=== PATIENT | male | born 1950 | race Caucasian/White ===

== ENCOUNTER 2023-09-11 09:44 | Outpatient (OUT) | payer MEDICARE, SELFPAY ==
--- NOTE | 2023-09-11 10:00 | CA_ITS ---
Patient Name: BEN VOSS MR#: [id number] : 1950 Exam Date: 09/11/2023 Ordering Doctor: MARIA L NINA M.D. ECHOCARDIOGRAM REPORT PROCEDURE: CA ECHO DOPPLER COMPLETE INDICATIONS: Atrial fibrillation, edema, hypertension COMPARISON: None. DESCRIPTION: COMPLETE ECHOCARDIOGRAM Real-time transthoracic echocardiography with 2D, M-mode, spectral and color flow Doppler performed. QUALITY: Technical quality was good. LEFT VENTRICLE: Normal chamber size. Normal left ventricular wall thickness. Normal systolic function. LV EF: Normal left ventricular ejection fraction, (65%). DIASTOLIC: Not adequately assessed due to heart rhythm. ATRIAL SEPTUM: LEFT ATRIUM: Moderate dilatation. RIGHT ATRIUM: Mild dilatation. RIGHT VENTRICLE: Mild dilatation. Normal right ventricular systolic function. TRICUSPID VALVE: Normal mobility and thickness. No stenosis with no regurgitation. Unable to assess right-sided pressures due to lack of measurable tricuspid regurgitation. MITRAL VALVE: Normal mobility and thickness. No evidence of mitral valve stenosis. There is no mitral annular calcification. Trivial mitral regurgitation. AORTIC VALVE: Normal trileaflet appearance. Mildly calcified aortic valve. Normal leaflet mobility. No evidence of aortic valve stenosis. No aortic regurgitation. AORTIC ROOT: Normal diameter and appearance. Ascending aorta is normal in size. PULMONIC VALVE: Normal thickness and mobility. No stenosis. Mild regurgitation. PERICARDIUM: No evidence of pericardial effusion. IVC: IVC is normal in size, does not collapse. PLEURA: CONCLUSION: 1. Normal left ventricular size and systolic function. LVEF is 65%. 2. Mildly dilated right ventricle with normal systolic function. 3. Mild to moderate biatrial dilatation. 4. No significant valvular dysfunction. 5. Unable to assess right-sided pressures due to lack of measurable tricuspid regurgitation. 6. The patient appears to be in atrial fibrillation during the exam. Adult Echocardiography Procedure Report Left Ventricle LVEDD (3.7 - 5.6 cm): 5.56 cm LVESD (2.2 - 4.0 cm): 4.09 cm LVIVS thickness (0.6 - 1.2 cm): 1.11 cm LVPW thickness (0.5 - 1.0 cm): 1.03 cm e': 0.11 m/s LVOT Max Gradient: 2.65 mm[Hg], 2.82 mm[Hg] LVOT Area (cm2): 0.83 m/s Peak Velocity (LVOT): 0.81 m/s, 0.84 m/s LVOT Diameter 2.39 cm Left Atrium LA Volume Index (2D A2C): 40.65 ml/m2 Left Atrium Systolic Dimension: 5.03 cm Mitral Valve Mitral Valve E-Wave Peak Velocity: 1.23 m/s Right Ventricle Aorta AO Root Diam: 3.73 cm Ascending Ao Diam: 3.60 cm Aortic Valve AoV Area (Peak Medhat): 3.22 cm2, 3.17 cm2 Peak Velocity(Antegrade Flow): 1.15 m/s Peak Gradient(Antegrade Flow): 5.32 mm[Hg] Tricuspid Valve Pulmonic Valve Peak Velocity: 1.15 m/s Peak Gradient: 4.33 mm[Hg], 6.44 mm[Hg] Right Atrium Right Atrium Systolic Pressure: 134.78 ml, 134.78 ml Dictated by: Juan Luis Aggarwal M.D. on 09/12/2023 at 15:57 Approved by: Juan Luis Aggarwal M.D. on 09/12/2023 at 16:00
== END 2023-09-11 09:45 | disposition home or self-care (01) ==
LOC: CARD 09:47
PROVIDERS: PCP Internal Medicine; Visit Provider Internal Medicine Cardiovascular Disease
DX: I11.9 Hypertensive heart disease without heart failure (principal); I48.91 Unspecified atrial fibrillation; R60.0 Localized edema
CPT/HCPCS: 93306

== ENCOUNTER 2025-01-03 14:06 | Emergency (ER) | payer MEDICARE, SELFPAY ==
--- NOTE | 2025-01-03 14:06 | CT_ITS ---
The [address] [address] Patient Name: BEN VOSS MRN: [id number] date: 1950 Sex: M Assigned Patient Location: ED.MAIN Current Patient Location: ED.MAIN Accession/Order Number: [id number] Exam Date: 01/03/2025 14:17 Report Date: 01/03/2025 14:28 At the request of: CASSIE SMITH MD Procedure: CT stroke head/brain wo con Unenhanced head CTstroke alert TECHNIQUE: Contiguous axial imaging of the head. The CT exam was performed using one or more the following dose reduction techniques: Automated exposure control, adjustment of the MA and/or Kv according to patient size, or use of the iterative reconstruction technique. COMPARISON: None HISTORY: Fell. Head injury. Patient on blood thinners VENTRICLES: Within normal limits ATROPHY: Diffuse atrophy BRAIN PARENCHYMA: Decreased density of the white matter is most consistent with chronic small vessel disease. HEMORRHAGE: None HERNIATION: No mass effect or herniation INFARCTION: No recent vascular distribution infarction is seen. EXTRA-AXIAL FLUID COLLECTIONS None MIDBRAIN: Unremarkable NIKKI: Unremarkable MEDULLA: Unremarkable SINUSES: Unremarkable ORBITS: Grossly unremarkable MASTOIDS: Unremarkable BONY STRUCTURES Intact ADDITIONAL FINDINGS: Calcified plaquing of the carotid siphons. CT/CT stroke head/brain wo con IMPRESSION: No acute findings. The preliminary given 2:24 PM 01/03/2025 Impression dictated by: Cassie Valdez M.D. 01/03/2025 2:28 PM Dictation Location[facility] Electron[facility] authenticated by: [id number] Y Date: 01/03/2025 14:28
--- NOTE | 2025-01-03 14:08 | CT_ITS ---
[address] [address] Patient Name: BEN VOSS MRN: [id number] date: 1950 Sex: M Assigned Patient Location: ED.MAIN Current Patient Location: ED.MAIN Accession/Order Number: [id number] Exam Date: 01/03/2025 14:17 Report Date: 01/03/2025 14:31 At the request of: CASSIE SMITH MD Procedure: CT cervical spine wo con CT Cervical Spine withoutcontrast TECHNIQUE: Axial imaging with 2-D and 3-D reconstruction. The CT exam was performed using one or more the following dose reduction techniques: Automated exposure control, adjustment of the MA and/or Kv according to patient size, or use of the iterative reconstruction technique. COMPARISON: None HISTORY: Head injury. Patient on blood thinners. POST SURGERY CHANGES: C5-7 fusion without hardware complication. BONY ALIGNMENT: Adequate BONY SPINAL CANAL: Patent central bony canal FRACTURE: None BONY LESIONS: None SOFT TISSUES: Unremarkable DEGENERATIVE CHANGES: C3-4 and C4-5 spondylosis. Multilevel facet degeneration. LUNG APICES: Unremarkable ADDITIONAL FINDINGS: CT/CT cervical spine wo con IMPRESSION: No acute process Impression dictated by: Cassie Valdez M.D. 01/03/2025 2:31 PM Dictation Location: Narrative Electronically authenticated by: [id number] Y Date: 01/03/2025 14:31
[2025-01-03 14:20] VITALS: BP 153/85; PULSE 70; TEMP 36.8; O2SAT 95; BMI 54.8
--- OUTSIDE RECORDS SUMMARY | 2025-01-03 15:17 | XMS_ITS | CCD ---
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 Role Phone ANSON, DR FRANCK Lord Attending Unavailable ANSON, DR FRANCK Lord Consulting Unavailable ANSON, DR FRANCK Lord Admitting DR BOB Armendariz Primary Care Unavailable Bob Ferrell MD Unavailable Bob Ferrell MD Primary Care Provider [phone] BOB FERRELL Attending BOB Armendariz Attending BOB Armendariz Attending BOB Armendariz Attending BOB Armendariz Attending Unavailable BOB FERRELL Attending Unavailable BOB FERRELL Attending Unavailable JOLIE KENT Attending Unavailable Medications Current Medications MedicationDrug Class(es)DatesSig (Normalized)Sig (Original)acetaminophen 325 mg / HYDROcodone bitartrate 5 mg oral tablet (20 sources)Opioid AgonistStart: 74-70-8999yshx 2 tablets by mouth every six hours for painHYDROcodone-acetaminophen ([place]) 5-325 MG tablet Indications: Lumbosacral neuritis , Degeneration of cervical intervertebral disc Take 2 tablets by mouth every 6 (six) hours if needed for severe pain 120 tablet 10/30/2024 ActiveStart: 39-12-6666oksl 2 tablets by mouth every six hours for painHYDROcodone-acetaminophen ([place]) 5-325 MG tablet Indications: Lumbosacral neuritis , Degeneration of cervical intervertebral disc Take 2 tablets by mouth every 6 (six) hours if needed for severe pain 120 tablet 10/30/2024 ActiveStart: 09-04-2023 End: 68-29-4803cuzh 2 tablets by mouth every six hours for painHYDROcodone- acetaminophen ([place]) 5-325 MG tablet Indications: Lumbosacral neuritis , Degeneration of cervical intervertebral disc Take 2 tablets by mouth every 6 (six) hours if needed for severe pain 120 tablet 06/27/2024 10/30/2024 Discontinued (Reorder)atorvastatin 20 mg oral tablet (16 sources)HMG-CoA Reductase InhibitorStart: 14-38-7016yesu 1 tablet by mouth once dailyatorvastatin (Lipitor) 20 MG tablet Indications: Mixed hyperlipidemia TAKE ONE TABLET BY MOUTH ONCEDAILY 100 tablet 3 06/06/2024 ActiveStart: 60-67-6876fltpxhulkpzf (Lipitor) 20 MG tablet Indications: Mixed hyperlipidemia (CMS/HCC) TAKE 1 TABLET ONCE DAILY 100 tablet 3 07/30/2023 Activecarvedilol 12.5 mg oral tablet (16 sources)alpha-Adrenergic Melanie, beta-Adrenergic BlockerStart: 06-11-2023 End: 05-64-9527vrhv 1 tablet by mouth in the morningcarvedilol (Coreg) 12.5 MG tablet Indications: Longstanding persistent atrial fibrillation (HCC) , Benign essential hypertension TAKE 1 TABLET BY MOUTH IN THE MORNING AND 1 TABLET IN THE EVENING WITHMEALS. 200 tablet 3 03/18/2024 Activecyclobenzaprine hydrochloride 10 mg oral tablet (16 sources)Muscle RelaxantStart: 08-72-8109tagh 1 tablet by mouth three times daily as needed for muscle spasms, then take 1 tablet by mouth three times daily as needed for muscle spasmscyclobenzaprine (Flexeril) 10 MG tablet Indications: Degeneration of cervical intervertebral disc Take 1 tablet (10 mg) by mouth 3 (three) times a day as needed for muscle spasms Take one capsule up to three times daily for 90 days 300 tablet 3 03/28/2024 ActiveStart: 12-03-2035ckvk 1 tablet by mouth three times daily as needed for muscle spasms, then take 1 tablet by mouth three times daily as needed for muscle spasmscyclobenzaprine (Flexeril) 10 MG tablet Indications: Degeneration of cervical intervertebral disc Take 1 tablet (10 mg) by mouth 3 (three) times a day as needed for muscle spasms Take one capsule up to three times daily for 90 days 300 tablet 3 10/11/2023 Activedigoxin 0.125 mg oral tablet (16 sources)Cardiac GlycosideStart: 67-27-9233ztao 1 tablet by mouth once daily digoxin (Lanoxin) 125 MCG tablet Indications: Atrial fibrillation, unspecified type (HCC) , Benign essential hypertension TAKE ONE TABLET BY MOUTH EVERY DAY 100 tablet 3 09/15/2024 ActiveStart: 43-18-2794onjs 1 tablet by mouth once daily digoxin (Lanoxin) 125 MCG tablet Indications: Atrial fibrillation, unspecified type (HCC) , Benign essential hypertension Take 1 tablet (125 mcg) by mouth Daily 90 tablet 3 09/03/2023 Uxpymg46 hr dilTIAZem hydrochloride 240 mg extended release oral capsule (18 sources)Calcium Channel BlockerStart: 12-29-2022 End: 25-70-2120fppm 1 tablet by mouth once dailydilTIAZem CD (Cardizem CD) 240 MG 24 hr capsule Indications: Longstanding persistent atrial fibrillation (HCC) Take 1 tablet by mouth daily 90 capsule 3 11/14/2023 Activedocosahexaenoic acid 120 mg / eicosapentaenoic acid 180 mg oral capsule (17 sources)omega-3 (fish oil) 1000 MG capsule 1 capsule 1 (one) time each day at the same time. Activefurosemide 20 mg oral tablet (18 sources)Loop DiureticStart: 05-21-2023 End: 52-78-3280hway 1 tablet by mouth once dailyfurosemide (Lasix) 20 MG tablet Indications: Generalized edema TAKE ONE TABLET BY MOUTH EVERY DAY 90 tablet 3 08/26/2024 Activelisinopril 20 mg oral tablet (5 sources)Angiotensin Converting Enzyme InhibitorStart: 08-19-2024 End: 73-40-7366iinz 1 tablet by mouth in the morninglisinopril 20 MG tablet Take 20 mg by mouth in the morning. 08/19/2024 10/30/2024 Discontinued (Side effects) Multiple Vitamins-Minerals (Multi For Him 50+) tablet (17 sources)Multiple Vitamins-Minerals (Multi For Him 50+) tablet 1 (one) time each day at the same time. Activeomeprazole 40 mg delayed release oral capsule (18 sources)Proton Pump InhibitorStart: 03-30-2023 End: 74-48-5017pdct 1 capsule by mouth once dailyomeprazole (PriLOSEC) [address] capsule Indications: GERD without esophagitis TAKE ONE CAPSULE BY MOUTH EVERY DAY AT THE SAME TIME 100 capsule 3 08/25/2024 Activeramipril 10 mg oral capsule (15 sources)Angiotensin Converting Enzyme InhibitorStart: 07-30-2023 End: 10-97-7808pqzg 1 capsule by mouth once dailyramipril (Altace) 10 MG capsule Indications: Benign essential hypertension Take 1 capsule (10 mg) by mouth Daily 90 capsule 3 11/14/2023 08/25/2024 DiscontinuedTurmeric extract (17 sources)Turmeric 500 MG tablet 1 (one) time each day at the same time. Activewarfarin sodium 5 mg oral tablet (16 sources)Vitamin K AntagonistStart: 01-01-2024 End: 03-61-1202sqkg 2 tablets by mouth three times weekly, then take 1 tablet by mouth four times weeklywarfarin (Coumadin) 5 MG tablet Indications: Longstanding persistent atrial fibrillation (HCC) TAKE2 TABLETS BY MOUTH 3 TIMES A WEEK AND 1 TABLET 4 TIMES A WEEK 143 tablet 3 10/27/2024 ActiveStart: 86-06-4888qkxe 2 tablets by mouth three times weekly, then take 1 tablet by mouth four times weeklywarfarin (Coumadin) 5 MG tablet Indications: Longstanding persistent atrial fibrillation (CMS/HCC) Take 2 tablets (10 mg) by mouth 3 (three) times a week AND 1 tablet (5 mg) 4 (four) times a week. 143 tablet 3 06/25/2023 Active Problems Active Problems Problem ClassificationProblemDateDocumented DateEpisodic/ChronicCardiac dysrhythmias (20 sources)Atrial fibrillation; Translations: [Unspecified atrial fibrillation] Onset: 029761-95-7822TuxdrixXtpwzszp mellitus with complications (2 sources)Type 2 diabetes mellitus; Translations: [Type 2 diabetes mellitus with unspecified complications]61-83-4014MtgtbhmTgahvjfw mellitus without complication (20 sources)Insulin treated type 2 diabetes mellitus; Translations: [Type 2 diabetes mellitus without complications]Onset: hronic Disorders of lipid metabolism (20 sources)Mixed hyperlipidemia; Translations: [Mixed hyperlipidemia]Onset: 047721-29-8697OiluqjdMvlyhpsqdk disorders (19 sources)Gastroesophageal reflux disease without esophagitis; Translations: [Gastro-esophageal reflux disease without esophagitis]Onset: 07-12-2022 49-66-3081AeqnkknVrnppuziy hypertension (20 sources)Benign essential hypertension; Translations: [Essential (primary) hypertension]Onset: 119030-55-1911EmumqkeThhoydbaalcj with complications and secondary hypertension (2 sources)Hypertensive heart disease without heart failure; Translations: [Hypertensive heart disease withoutheart failure]Onset: 09-40-5884Lfcbmdz Immunizations and screening for infectious disease (2 sources)Needs influenza immunization; Translations: [Encounter for immunization]94-51-5551EymnnshiRrmrcafvakprmg (17 sources)Osteoarthritis; Translations: [Primary generalized (osteo)arthritis] Onset: 172445-63-9693SstcjacGmpkb nutritional; endocrine; and metabolic disorders (17 sources)Morbid obesity; Translations: [Morbid (severe) obesity due to excess calories]Onset: 455411-22-1098HxrughsCogtiajv codes; unclassified (17 sources)Obstructive sleep apnea syndrome; Translations: [Obstructive sleep apnea (adult) (pediatric)]Onset: 628487-98-8064RpekcuoExfccfnx codes; unclassified (2 sources)Edema, generalized; Translations: [Generalized edema]11-14-2023 EpisodicSpondylosis; intervertebral disc disorders; other back problems (20 sources)Degeneration of cervical intervertebral disc; Translations: [Other cervical disc degeneration, unspecified cervical region]Onset: 07-12-2022 18-79-9650Mstipbj Past or Other Problems Problem ClassificationProblemDateDocumented DateEpisodic/ChronicOther aftercare (15 sources)Long-term current use of anticoagulant; Translations: [Encounter for therapeutic drug level monitoring]Onset: 463202-93-3339TkortobzEehcepco codes; unclassified (17 sources)Edema; Translations: [Edema, unspecified]Onset: EpisodicSpondylosis; intervertebral disc disorders; other back problems (20 sources)Lumbosacral radiculitis; Translations: [Radiculopathy, lumbosacral region]Onset: 977981-03-3624Ovopelue Results Test NameValueInterpretationReference IunjdWbcboetc00bf 42-30-881714Bt returned call he wants to stay on ramipril, he will take bps for 2 weeks and call us w readingsNormalUniRegency Hospital [facility]36LM for patient to return my call.[facility]36Patient called to make you aware that since changing from ramipril to lisinopril on 08/19/2024, he's been very dizzy and has fallen a few times. A few days ago he switched back to ramipril and his BP has been 130's/70's. He states the dizziness did subside with the switch. Is there anything else you'd like him to do/try? Please advise. Thanks.NormalGal[facility] Hospital [facility] - Cytologyon 07-38-3401Lzplloajbkp observation Cyto stain Nom (Cvx) 2.7NOMS HealthcareNo Panel Informationon [id number] HealthcareTelephoneon [id number] Ben Knight 1950 M Date Provider Department Center 10/30/2024 T[facility]TEJAS [facility] Family History Problem Relation Age of Onset Cancer Mother Heart attack Father Coronary artery disease Other Cancer Other Family Status - Relation Status Age at Mother Father OtherNormalUniversWooster Community HospitalLaboratory - Cytologyon 08-25-2024 Microscopic observation Cyto stain Nom (Cvx)2.1[facility] HealthcareLaboratory - Hematology and Cell countson 50-69-1646EdY7f (Bld) [Mass fraction]7.9 %[facility]OMS HealthcareNo Panel Informationon [id number] HealthcareNOTN Qktbxrzogh08zm *We will change ramipril to lisinopril. *Have follow-up labs done 2-3 weeks after starting lisinopril so we can check your kidney function as this medication is filtered by the kidneys. *Let us know if your BP continues to run >130.NormalGalion HospitalALBUMIN, RANDOM URINE W/CREATININEon 97-69-2769OGSBNOJ, URINE71.1 mg/dL NormalSee Note:[facility] DiagnosticsComment on above:Result Comment: Reference Range: Reference Range Not established Results verified by repeat analysis on dilution.Performed By: #### 0011, 5530, 24884, 8890 #### [facility] [place] [address] Senior Operations Manager: Renzo Milton MDALBUMIN/CREATININE RATIO, RANDOM ZRGBG818 mg/g creatHigh<30Quest DiagnosticsComment on above:Result Comment: The ADA defines abnormalities in albumin excretion as follows: Albuminuria Category Result (mg/g creatinine) Normal to Mildly increased <30 Moderately increased 30-299 Severely increased > OR = 300 The ADA recommends that at least two of three specimens collected within a 3-6 month period be abnormal before considering a patient to be within a diagnostic category.Performed By: #### 6517, 6399, 64515, 7600 #### [facility] [place] [address] Senior Operations Manager: Renzo Milton MDCreatinine (U) [Mass/Vol]148 mg/nFKswetb08-727 [facility] DiagnosticsComment on above:Performed By: #### 6517, 6399, 08921, 7600 #### [facility] [place] [address] Senior Operations Manager: Renzo Milton MDCBC (INCLUDES DIFF/PLT)on 29-49-4013Bzszmnrrh (Bld) [#/Vol]0.106 10*3/uLNormal0-200Quest DiagnosticsComment on above:Performed By: #### 6517, 63, 88765, 7600 #### [facility] [place] [address] Senior Operations Manager: Renzo Milton MDBasophils/100 WBC (Bld)1.1 %NormalQuest DiagnosticsComment on above:Performed By: #### 6517, 6399, 97760, 7600 #### [facility] [place] [address] Senior Operations Manager: Renzo Milton MDEosinophils (Bld) [#/Vol]0.365 10*3/uLNormal 15-500Quest DiagnosticsComment on above:Performed By: #### 6517, 6399, 64603, 7600 #### [facility] of [address], [address] [place] [address] Senior Operations Manager: Renzo Milton MDEosinophils/100 WBC (Bld)3.8 %NormalQuest DiagnosticsComment on above:Performed By: #### 6517, 6399, 09366, 7600 #### [facility] of [place] [address] Senior Operations Manager: Renzo Milton MDErythrocyte distribution width (RBC) [Ratio] 14.8 %Fvoalz69.0-15.0Quest DiagnosticsComment on above:Performed By: #### 6517, 6399, 07115, 7600 #### [facility] of [place] [address] Senior Operations Manager: Renzo Milton MDHematocrit (Bld) [Volume fraction]49.0 %Normal 38.5-50.0Quest DiagnosticsComment on above:Performed By: #### 6517, 6399, 80109, 7600 #### [facility] of [place] [address] Senior Operations Manager: Renzo Milton MDHemoglobin (Bld) [Mass/Vol]14.8 g/dLNormal 13.2-17.1Quest DiagnosticsComment on above:Performed By: #### 6517, 6399, 54482, 7600 #### [facility] of [address], [address] [place] [address] Senior Operations Manager: Renzo Milton MDLymphocytes (Bld) [#/Vol]1.478 10*3/uLNormal 850-3900Quest DiagnosticsComment on above:Performed By: #### 6517, 6399, 72076, 7600 #### [facility] of [address], [address] [place] [address] Senior Operations Manager: Renzo Milton MDLymphocytes/100 WBC (Bld)15.4 %NormalQuest DiagnosticsComment on above:Performed By: #### 6517, 6399, 99725, 7600 #### [facility] of [address], [address] [place] [address] Senior Operations Manager: Renzo TANCH (RBC) [Entitic mass]29.9 nnNbitbf92.0-33.0 [facility] DiagnosticsComment on above:Performed By: #### 6517, 63, 44291, 7600 #### [facility] of [address], [address] [place] [address] Senior Operations Manager: Renzo TANCHC (RBC) [Mass/Vol]30.2 g/dLLow32.0-36.0 [facility] DiagnosticsComment on above:Result Comment: For adults, a slight decrease in the calculated MCHC value (in the range of 30 to 32 g/dL) is most likely not clinically significant; however, it should be interpreted with caution in correlation with other red cell parameters and the patient's clinical condition.Performed By: #### 6517, 63, 06735, 7600 #### [facility] of [place] [address] Senior Operations Manager: Renzo Milton MDMCV (RBC) [Entitic vol]99.0 nKYjnxgv04.0-100.0 [facility] DiagnosticsComment on above:Performed By: #### 6517, 63, 24240, 7600 #### [facility] of [address], [address] [place] [address] Senior Operations Manager: Renzo Milton MDMonocytes (Bld) [#/Vol]0.682 10*3/uLNormal 200-950Quest DiagnosticsComment on above:Performed By: #### 6517, 63, 93071, 7600 #### [facility] of [place] [address] Senior Operations Manager: Renzo Milton MDMonocytes/100 WBC (Bld)7.1 %NormalQuest DiagnosticsComment on above:Performed By: #### 6517, 63, 96208, 7600 #### [facility] of [place] [address], [address] [place] [address] Senior Operations Manager: Renzo Scanlon (Bld) [#/Vol]6.97 10*3/uLNormal 1500-7800Quest DiagnosticsComment on above:Performed By: #### 6517, 6399, 17147, 7600 #### [facility] of [place] [address] [address] , [address] [place] [address] Senior Operations Manager: Renzo Scanlon/100 WBC (Bld)72.6 %NormalQuest DiagnosticsComment on above:Performed By: #### 6517, 6399, 04990, 7600 #### [facility] of [address] , [address] [place] [address] Senior Operations Manager: Renzo CHANlatelet mean volume (Bld) [Entitic vol]9.8 fL Normal7.5-12.5Quest DiagnosticsComment on above:Performed By: #### 6517, 6399, 06554, 7600 #### [facility] of [place] [address] [address] , [address] [place] [address] Senior Operations Manager: Renzo Milton MDPlatelets (Bld) [#/Vol]251 10*3/uLNormal 140-400Quest DiagnosticsComment on above:Performed By: #### 6517, 6399, 25982, 7600 #### [facility] of [place] [address] [address] , [address] [place] [address] Senior Operations Manager: Renzo Milton MDRBC (Bld) [#/Vol]4.95 10*6/uLNormal4.20-5.80 [facility] DiagnosticsComment on above:Performed By: #### 6517, 6399, 88812, 7600 #### [facility] of [place] [address], [address] [place] [address] Senior Operations Manager: Renzo Milton MDWBC (Bld) [#/Vol]9.6 10*3/uLNormal3.8-10.8 [facility] DiagnosticsComment on above:Performed By: #### 6517, 6399, 89821, 7600 #### [facility] of [address], [address] [place] [address] Senior Operations Manager: Renzo Milton MDCOMPREHENSIVE METABOLIC PANELon 08-19-2024 Albumin [Mass/Vol]4.0 g/dLNormal3.6-5.1Quest DiagnosticsComment on above: Performed By: #### 6517, 6399, 64332, 7600 #### [facility] of [address], [address] [place] [address] Senior Operations Manager: Renzo Milton MDAlbumin/Globulin [Mass ratio]1.5 {ratio}Normal 1.0-2.5Quest DiagnosticsComment on above:Performed By: #### 6517, 6399, 48340, 7600 #### [facility] of [address], [address] [place] [address] Senior Operations Manager: Renzo Milton MDALP [Catalytic activity/Vol]84 U/BWpiwgd26-664 [facility] DiagnosticsComment on above:Performed By: #### 6517, 6399, 94131, 7600 #### [facility] of [place] [address] Senior Operations Manager: Renzo Milton MDALT [Catalytic activity/Vol]7 U/LLow9-46Quest DiagnosticsComment on above:Performed By: #### 6517, 6399, 80284, 7600 #### [facility] of [address], [address] [place] [address] Senior Operations Manager: Renzo Milton MDAST [Catalytic activity/Vol]13 U/TTaayma16-55 [facility] DiagnosticsComment on above:Performed By: #### 6517, 6399, 56690, 7600 #### [facility] of [place] [address] Senior Operations Manager: Renzo Milton MDBilirubin [Mass/Vol]0.7 mg/dLNormal0.2-1.2 [facility] DiagnosticsComment on above:Performed By: #### 6517, 6399, 91405, 7600 #### [facility] of [place] [address] Senior Operations Manager: Renzo Milton MDCalcium [Mass/Vol]9.1 mg/dLNormal8.6-10.3Quest DiagnosticsComment on above:Performed By: #### 6517, 6399, 70965, 7600 #### [facility] of [place] [address] Senior Operations Manager: Renzo Milton MDChloride [Moles/Vol]100 mmol/WSdpwhe56-873 [facility] DiagnosticsComment on above:Performed By: #### 6517, 6399, 39257, 7600 #### [facility] of [place] [address] Senior Operations Manager: Renzo Milton MDCO2 [Moles/Vol]27 mmol/SBunhoh36-08Lcbsr DiagnosticsComment on above:Performed By: #### 6517, 6399, 05978, 7600 #### [facility] of [place] [address] Senior Operations Manager: Renzo Milton MDCreatinine [Mass/Vol]0.68 mg/dLLow0.70-1.28 [facility] DiagnosticsComment on above:Performed By: #### 6517, 6399, 61214, 7600 #### [facility] of [place] [address] Senior Operations Manager: Renzo Milton MDGFR/1.73 sq M.predicted among non-blacks MDRD (S/P/Bld) [Vol rate/Area]99 mL/min/{1.73_m2}Normal> OR = 60[facility] Comment on above:Performed By: #### 6517, 6399, 75821, 7600 #### [facility] of [place] [address] Senior Operations Manager: Renzo Milton MDGlobulin (S) [Mass/Vol]2.7 g/dLNormal1.9-3.7 [facility] DiagnosticsComment on above:Performed By: #### 6517, 6399, 33992, 7600 #### [facility] [place] [address] Senior Operations Manager: Renzo Milton MDGlucose [Mass/Vol]168 mg/iXQsdl62-76Axxtn DiagnosticsComment on above:Result Comment: Fasting reference interval For someone without known diabetes, a glucose value >125 mg/dL indicates that they may have diabetes and this should be confirmed with a follow-up test.Performed By: #### 6517, 6399, 03143, 7600 #### [facility] [place] [address] Senior Operations Manager: Renzo Milton MDPotassium [Moles/Vol]4.2 mmol/LNormal3.5-5.3 [facility] DiagnosticsComment on above:Performed By: #### 6517, 6399, 56333, 7600 #### [facility] [place] [address] Senior Operations Manager: Renzo Milton MDProtein [Mass/Vol]6.7 g/dLNormal6.1-8.1Quest DiagnosticsComment on above:Performed By: #### 6517, 6399, 11121, 7600 #### [facility] [place] [address] Senior Operations Manager: Renzo Milton MDSodium [Moles/Vol]140 mmol/SNsledu422-953Yboyk DiagnosticsComment on above:Performed By: #### 6517, 6399, 70054, 7600 #### [facility] [place] [address] Senior Operations Manager: Renzo Milton MDUrea nitrogen [Mass/Vol]16 mg/dLNormal7-25 [facility] DiagnosticsComment on above:Performed By: #### 6517, 6399, 29432, 7600 #### [facility] [address], [address] [place] [address] Senior Operations Manager: Renzo Lindsay nitrogen/Creatinine [Mass ratio]24 mg/mg High6-22Quest DiagnosticsComment on above:Performed By: #### 6517, 6399, 03610, 7600 #### [facility] [place] [address] Senior Operations Manager: Renzo Milton MDLIPID PANEL, STANDARD 23-75-8901Sdgupxqkpfr [Mass/Vol]98 mg/dLNormal<200Quest DiagnosticsComment on above:Order Comment: FASTING:YES FASTING: YESPerformed By: #### 6517, 6399, 77168, 7600 #### [facility] [place] [address] Senior Operations Manager: Renzo Milton MDCholesterol in HDL [Mass/Vol]32 mg/dLLow> OR = 40Quest DiagnosticsComment on above:Order Comment: FASTING:YES FASTING: YESPerformed By: #### 6517, 6399, 59972, 7600 #### [facility] [place] [address] Senior Operations Manager: Renzo Milton MDCholesterol in LDL [Mass/Vol]47 mg/dLNormal [facility] DiagnosticsComment on above:Order Comment: FASTING:YES FASTING: YESResult Comment: Reference range: <100 Desirable range <100 mg/dL for primary prevention; <70 mg/dL for patients with CHD or diabetic patients with > or = 2 CHD risk factors. LDL-C is now calculated using the Placido calculation, which is a validated novel method providing better accuracy than the Friedewald equation in the estimation of LDL-C. Sixto HOFFMAN et al. KRIS. 2013;310(19): 1502-9272 (http://education.OneCubicle.Nanoference/faq/EMK905)Performed By: #### 6517, 6399, 45785, 7600 #### [facility] [address] [place] [address] Senior Operations Manager: Renzo HIGHholesterol.total/Cholesterol in HDL [Mass ratio]3.1 {ratio}Normal<5.0Quest DiagnosticsComment on above:Order Comment: FASTING:YES FASTING: YESPerformed By: #### 6517, 6399, 04818, 7600 #### [facility] [address], [address] [place] [address] Senior Operations Manager: Renzo PANIAGUA HDL ICPWNWSNYAM77 mg/dL (calc)Normal<130 [facility] DiagnosticsComment on above:Order Comment: FASTING:YES FASTING: YESResult Comment: For patients with diabetes plus 1 major ASCVD risk factor, treating to a non-HDL-C goal of <100 mg/dL (LDL-C of <70 mg/dL) is considered a therapeutic option.Performed By: #### 6517, 6399, 06918, 7600 #### [facility] [place] [address] Senior Operations Manager: Renzo Milton MDTriglyceride [Mass/Vol]103 mg/dLNormal<150 [facility] DiagnosticsComment on above:Order Comment: FASTING:YES FASTING: YESPerformed By: #### 6517, 6399, 24657, 7600 #### [facility] [address], [address] [place] [address] Senior Operations Manager: Renzo Milton MDOffice Visiton [id number]-up visit [id number] Ben Knight 1950 M Date Provider Department [place] 08/19/2024 [facility] GILL[facility] Family History Problem Relation Age of Onset Cancer Mother Heart attack Father Coronary artery disease Other Cancer Other Family Status - Relation Status Age at Mother Father Other Level of Service:26391 AL OFFICE/OUTPATIENT ESTABLISHED MOD MDM 30 MIN Reason for Visit and Comments: Atrial Fibrillation [80] Hypertension [818173] Hyperlipidemia [182]NormalGalion HospitalPSA, TOTALon 22-39-7985TPK, TOTAL0.55 ng/mLNormal< OR = 4.00Quest DiagnosticsComment on above:Result Comment: The total PSA value from this assay system is standardized against the WHO standard. The test result will be approximately 20% lower when compared to the equimolar-standardized total PSA (Kelsi Giovanny). Comparison of serial PSA results should be interpreted with this fact in mind. This test was performed using the Siemens chemiluminescent method. Values obtained from different assay methods cannot be used interchangeably. PSA levels, regardless of value, should not be interpreted as absolute evidence of the presence or absence of disease.Performed By: #### 6517, 6399, 91172, 7600 #### [facility] [address], [address] [place] [address] Senior Operations Manager: Renzo Milton MDLaboratory - Cytologyon 87-46-5680Sglhgberpbx observation Cyto stain Nom (Cvx)2.4NOBarnes-Jewish HospitalLaboratory - Hematology and Cell countson 82-85-2124HhD9t (Bld) [Mass fraction]7.6 %[facility] HealthcareNo Panel Informationon 69-44-0048RJKVSainte Genevieve County Memorial [facility] HealthcareLaboratory - Cytologyon 11-70-8090Grqssqwllfy observation Cyto stain Nom (Cvx)2.3[facility] Laboratory - Hematology and Cell countson 40-99-6091ZuJ8t (Bld) [Mass fraction] 7.7 %[facility] HealthcareNo Panel Informationon 16-70-0923VHNMCameron Regional Medical Center HealthcareLaboratory - Cytologyon 59-55-1731Nricvyuxoeo observation Cyto stain Nom (Cvx)1.8NOBarnes-Jewish HospitalNo Panel Informationon 62-96-6717HKJGHawthorn Children's Psychiatric HospitalCA ECHO DOPPLER COMPLETEon 50-09-9627[place], [place] [address] Cardiology Report Signed Patient: BEN KNIGHT MR#: [id number] : 1950 Acct:[id number] Age/Sex: 72 / M ADM Date: 09/11/23 Loc: CARD Attending Dr: MARIA L NINA Ordering Physician: MARIA L NINA Date of Service: 09/11/23 Procedure(s): CA echo doppler complete Accession Number(s): [id number] cc: MARIA L NINA; BOB FERRELL Patient Name: BEN KNIGHT MR#: [id number] : 1950 Exam Date: 09/11/2023 Ordering Doctor: MARIA L NINA M.D. ECHOCARDIOGRAM REPORT PROCEDURE: CA ECHO DOPPLER COMPLETE INDICATIONS: Atrial fibrillation, edema, hypertension COMPARISON: None. DESCRIPTION: COMPLETE ECHOCARDIOGRAM Real-time transthoracic echocardiography with 2D, M-mode, spectral and color flow Doppler performed. QUALITY: Technical quality was good. LEFT VENTRICLE: Normal chamber size. Normal left ventricular wall thickness. Normal systolic function. LV EF: Normal left ventricular ejection fraction, (65%). DIASTOLIC: Not adequately assessed due to heart rhythm. ATRIAL SEPTUM: LEFT ATRIUM: Moderate dilatation. RIGHT ATRIUM: Mild dilatation. RIGHT VENTRICLE: Mild dilatation. Normal right ventricular systolic function. TRICUSPID VALVE: Normal mobility and thickness. No stenosis with no regurgitation. Unable to assess right-sided pressures due to lack of measurable tricuspid regurgitation. MITRAL VALVE: Normal mobility and thickness. No evidence of mitral valve stenosis. There is no mitral annular calcification. Trivial mitral regurgitation. AORTIC VALVE: Normal trileaflet appearance. Mildly calcified aortic valve. Normal leaflet mobility. No evidence of aortic valve stenosis. No aortic regurgitation. AORTIC ROOT: Normal diameter and appearance. Ascending aorta is normal in size. PULMONIC VALVE: Normal thickness and mobility. No stenosis. Mild regurgitation. PERICARDIUM: No evidence of pericardial effusion. IVC: IVC is normal in size, does not collapse. PLEURA: CONCLUSION: 1. Normal left ventricular size and systolic function. LVEF is 65%. 2. Mildly dilated right ventricle with normal systolic function. 3. Mild to moderate biatrial dilatation. 4. No significant valvular dysfunction. 5. Unable to assess right-sided pressures due to lack of measurable tricuspid regurgitation. 6. The patient appears to be in atrial fibrillation during the exam. Adult Echocardiography Procedure Report Left Ventricle LVEDD (3.7 - 5.6 cm): 5.56 cm LVESD (2.2 - 4.0 cm): 4.09 cm LVIVS thickness (0.6 - 1.2 cm): 1.11 cm LVPW thickness (0.5 - 1.0 cm): 1.03 cm e': 0.11 m/s LVOT Max Gradient: 2.65 mm[Hg], 2.82 mm[Hg] LVOT Area (cm2): 0.83 m/s Peak Velocity (LVOT): 0.81 m/s, 0.84 m/s LVOT Diameter 2.39 cm Left Atrium LA Volume Index (2D A2C): 40.65 ml/m2 Left Atrium Systolic Dimension: 5.03 cm Mitral Valve Mitral Valve E-Wave Peak Velocity: 1.23 m/s Right Ventricle Aorta AO Root Diam: 3.73 cm Ascending Ao Diam: 3.60 cm Aortic Valve AoV Area (Peak Medhat): 3.22 cm2, 3.17 cm2 Peak Velocity(Antegrade Flow): 1.15 m/s Peak Gradient(Antegrade Flow): 5.32 mm[Hg] Tricuspid Valve Pulmonic Valve Peak Velocity: 1.15 m/s Peak Gradient: 4.33 mm[Hg], 6.44 mm[Hg] Right Atrium Right Atrium Systolic Pressure: 134.78 ml, 134.78 ml Dictated by: Marce Yi M.D. on 09/12/2023 at 15:57 Approved by: Marce Yi M.D. on 09/12/2023 at 16:00 Dictated By: MARCE YI Signed By: 09/12/23 1601 DD/ 1600 (more content not included)...TBHRadiology, Radiologist, MD - 09/12/2023 [place] [address] Cardiology Report Signed Patient: BEN KNIGHT MR#: [id number] : 1950 Acct:[id number] Age/Sex: 72 / M ADM Date: 09/11/23 Loc: CARD Attending Dr: MARIA L NINA Ordering Physician: MARIA L NINA Date of Service: 09/11/23 Procedure(s): CA echo doppler complete Accession Number(s): [id number] cc: MARIA L NINA; BOB FERRELL Patient Name: BEN KNIGHT MR#: [id number] : 1950 Exam Date: 09/11/2023 Ordering Doctor: MARIA L NINA M.D. ECHOCARDIOGRAM REPORT PROCEDURE: CA ECHO DOPPLER COMPLETE INDICATIONS: Atrial fibrillation, edema, hypertension COMPARISON: None. DESCRIPTION: COMPLETE ECHOCARDIOGRAM Real-time transthoracic echocardiography with 2D, M-mode, spectral and color flow Doppler performed. QUALITY: Technical quality was good. LEFT VENTRICLE: Normal chamber size. Normal left ventricular wall thickness. Normal systolic function. LV EF: Normal left ventricular ejection fraction, (65%). DIASTOLIC: Not adequately assessed due to heart rhythm. ATRIAL SEPTUM: LEFT ATRIUM: Moderate dilatation. RIGHT ATRIUM: Mild dilatation. RIGHT VENTRICLE: Mild dilatation. Normal right ventricular systolic function. TRICUSPID VALVE: Normal mobility and thickness. No stenosis with no regurgitation. Unable to assess right-sided pressures due to lack of measurable tricuspid regurgitation. MITRAL VALVE: Normal mobility and thickness. No evidence of mitral valve stenosis. There is no mitral annular calcification. Trivial mitral regurgitation. AORTIC VALVE: Normal trileaflet appearance. Mildly calcified aortic valve. Normal leaflet mobility. No evidence of aortic valve stenosis. No aortic regurgitation. AORTIC ROOT: Normal diameter and appearance. Ascending aorta is normal in size. PULMONIC VALVE: Normal thickness and mobility. No stenosis. Mild regurgitation. PERICARDIUM: No evidence of pericardial effusion. IVC: IVC is normal in size, does not collapse. PLEURA: CONCLUSION: 1. Normal left ventricular size and systolic function. LVEF is 65%. 2. Mildly dilated right ventricle with normal systolic function. 3. Mild to moderate biatrial dilatation. 4. No significant valvular dysfunction. 5. Unable to assess right-sided pressures due to lack of measurable tricuspid regurgitation. 6. The patient appears to be in atrial fibrillation during the exam. Adult Echocardiography Procedure Report Left Ventricle LVEDD (3.7 - 5.6 cm): 5.56 cm LVESD (2.2 - 4.0 cm): 4.09 cm LVIVS thickness (0.6 - 1.2 cm): 1.11 cm LVPW thickness (0.5 - 1.0 cm): 1.03 cm e': 0.11 m/s LVOT Max Gradient: 2.65 mm[Hg], 2.82 mm[Hg] LVOT Area (cm2): 0.83 m/s Peak Velocity (LVOT): 0.81 m/s, 0.84 m/s LVOT Diameter 2.39 cm Left Atrium LA Volume Index (2D A2C): 40.65 ml/m2 Left Atrium Systolic Dimension: 5.03 cm Mitral Valve Mitral Valve E-Wave Peak Velocity: 1.23 m/s Right Ventricle Aorta AO Root Diam: 3.73 cm Ascending Ao Diam: 3.60 cm Aortic Valve AoV Area (Peak Medhat): 3.22 cm2, 3.17 cm2 Peak Velocity(Antegrade Flow): 1.15 m/s Peak Gradient(Antegrade Flow): 5.32 mm[Hg] Tricuspid Valve Pulmonic Valve Peak Velocity: 1.15 m/s Peak Gradient: 4.33 mm[Hg], 6.44 mm[Hg] Right Atrium Right Atrium Systolic Pressure: 134.78 ml, 134.78 ml Dictated by: Marce Yi M.D. on 09/12/2023 at 15:57 Approved by: Marce Yi M.D. on 09/12/2023 at 16:00 Dictated By: MARCE YI Signed By: 09/12/23 1601 DD/ 1600 TD/TT: Engine Assembler: [facility] HospitalRadiology Study observation (narrative)[facility] ECHO DOPPLER COMPLETEOrdered By: Radiologist Radiology on 12-77-1876LJXYHawthorn Children's Psychiatric Hospital Work Phone: Vital Signs Date TimeVital SignValuePerforming HjtcpffpuBpmxmbmi45-10-5066 11:15-0400Body fkkwej380.8 cmDatomeka Ferrell MD Work Phone: [phone]-[facility] HospitalKojusyfhhp14-08-6679 11:15-0400Body mass index (BMI) [Ratio]54.38 kg/z4KochqzBob Ferrell MD Work Phone: [phone]iatric HospitalKjeazzxwpc15-21-1774 11:15-0400Body yvnkyw788.91 kgBob Ferrell MD Work Phone: [phone] [address]Ptlcwhuitx07-12-2787 11:15-0400Diastolic blood mrvavwah51 mm[Hg]Bob Ferrell MD Work Phone: [phone] HospitalZukxkazmgi67-40-6895 11:15-0400Heart rate78 /min Bob Ferrell MD Work Phone: [facility] HospitalKvhnedielo54-60-0780 11:15-7377GpG0% (BldA) [Mass fraction]96 %Bob Ferrell MD Work Phone: [facility] HospitalSvpnqgqzbx86-33-6365 11:15-0400Systolic blood cveygpzi113 mm[Hg]Bob Ferrell MD Work Phone: [facility] HospitalYuljyhpsjf38-41-7174 10:00-0400Body lwityc638.8 cmBob Ferrell MD Work Phone: [phone])[facility]-2536[facility] HospitalUbdtjstvwb53-68-4088 10:00-0400Body mass index (BMI) [Ratio]52.95 kg/a9VlanrjBob Ferrell MD Work Phone: [facility] HospitalErxjwldmdq59-26-4021 10:00-0400Body ametye959.38 kgBob Ferrell MD Work Phone: [phone])[facility]-[address] [place], [place] [address]Ucxmvgedpd01-99-5999 10:00-0400Diastolic blood rokghnkz67 mm[Hg]Bob Ferrell MD Work Phone: [phone])[facility]-5937[facility] HospitalDtbwpajcvg45-43-9491 10:00-0400Heart rate75 /min Bob Ferrell MD Work Phone: [phone])[facility]-[address] [place], [place] [address]Seaessgqqs25-06-5028 10:00-4798KgN8% (BldA) [Mass fraction]95 %Bob Ferrell MD Work Phone: [phone])[facility]-[address] [place], [place] [address]Oumhwzyviz40-35-7732 10:00-0400Systolic blood tircojjf061 mm[Hg]Bob Ferrell MD Work Phone: [phone] [place], [place] [address]Xxonzthpvx30-01-4601 09:42-0500Body bzzaqy449.8 cmBob Ferrell MD Work Phone: [phone])[facility]-[address] [place], [place] [address]Wuyadprbrh90-94-0049 09:42-0500Body mass index (BMI) [Ratio]53.95 kg/u4KinfdnBob Ferrell MD Work Phone: [phone] [place], [place] [address]Wfgmytbvmj18-84-1181 09:42-0500Body .55 kgBob Ferrell MD Work Phone: [phone])[facility]-8645[facility] HospitalKogqizzjsl15-92-8719 09:42-0500Diastolic blood gsxglbur77 mm[Hg]Bob Ferrell MD Work Phone: [phone] [place], [place] [address]Nqhnjyliwh12-45-6704 09:42-0500Heart rate77 /min Bob Ferrell MD Work Phone: NOBarnes-Jewish HospitalOlmdxvttgl81-59-9013 09:42-0286ImW4% (BldA) [Mass fraction]96 %Bob Ferrell MD Work Phone: NOBarnes-Jewish HospitalTxdmioubyq18-74-8038 09:42-0500Systolic blood spbbysdf137 mm[Hg]Bob Ferrell MD Work Phone: NOBarnes-Jewish HospitalLhzliwlnkp23-12-2418 09:29-0500Body iuybzg622.8 cmBob Ferrell MD Work Phone: NOBarnes-Jewish HospitalIwpdbevcwl94-15-1819 09:29-0500Body mass index (BMI) [Ratio]55.67 kg/j4IacwgwBob Ferrell MD Work Phone: NOBarnes-Jewish HospitalMhlfsgprtj92-17-3483 09:29-0500Body voplgt146 kg Bob Ferrell MD Work Phone: NOBarnes-Jewish HospitalJqllajjqos68-25-6527 09:29-0500Diastolic blood ezpmbhwz04 mm[Hg]Bob Ferrell MD Work Phone: NOBarnes-Jewish HospitalYkehofdrph21-20-2197 09:29-0500Heart rate84 /min Bob Ferrell MD Work Phone: NOBarnes-Jewish HospitalEcaqdfvoby43-70-1396 09:29-2555VtN9% (BldA) [Mass fraction]92 %Bob Ferrell MD Work Phone: NOBarnes-Jewish HospitalGftfcmkmhm45-58-6230 09:29-0500Systolic blood hedcolzb628 mm[Hg]Bob Ferrell MD Work Phone: NOBarnes-Jewish HospitalOubuylmjgz21-93-7819 10:24-0400Body ysecml917.8 cmBob Ferrell MD Work Phone: NOBarnes-Jewish HospitalPitmtkcoxr18-27-4119 10:24-0400Body mass index (BMI) [Ratio]55.39 kg/e2VbfinuBob Ferrell MD Work Phone: NOBarnes-Jewish HospitalCawaubtohz05-13-1487 10:24-0400Body imlkep152.09 kgBob Ferrell MD Work Phone: noms Vdgivehrkf12-58-2985 10:24-0400Diastolic blood dwkiktrk72 mm[Hg]Bob Ferrell MD Work Phone: noBarnes-Jewish HospitalBzogcchyow37-86-1953 10:24-0400Heart rate74 /min Bob Ferrell MD Work Phone: noms Kxfaywesuy53-31-6164 10:24-0884WyB2% (BldA) [Mass fraction]97 %Bob Ferrell MD Work Phone: n[facility] Lpqkaqvmfn82-29-3164 10:24-0400Systolic blood hunmtfog722 mm[Hg]Bob Ferrell MD Work Phone: [facility] Encounters Encounter DateEncounter TypeCare ProviderFacilityStart: 10-30-2024 End: 45-81-2064Bfpynx flowsheetBob Ferrell MD Work Phone: NOWX [place] MedinceStart: 10-30-2024 End: 83-77-4468Ixqwrj flowsJered Ferrell MD Work Phone: NOJW [place] MedinceStart: 10-30-2024 End: 25-70-0294Vqmhsy outpatient visit 25 minutesBob Ferrell MD Work Phone: NOVV [place] MedinceComment on above:Longstanding persistent atrial fibrillation (HCC); Lumbosacral neuritis; Degeneration of cervical intervertebral discStart: 10-30-2024 End: 81-23-4823fzepzpjsszIGSMMY B BERRYNot AvailableStart: 08-25-2024 End: 12-62-1289Gftedz outpatient visit 25 minutesBob Ferrell MD Work Phone: [facility] CI FMComment on above:Longstanding persistent atrial fibrillation (HCC) (Primary Dx); Type 2 diabetes mellitus with other specified complication, with long-term current use of insulin (HCC); Benign essential hypertension ; Mixed hyperlipidemiaStart: 08-25-2024 End: 10-18-3697pcbfonfuemSRFGPX B BERRYNot AvailableStart: 08-19-2024 End: 98-67-1032ltgamiblwyFHCEFSI [facility] Medical Centertart: 06-27-2024 End: 58-16-1676CthuxbTnfqmqPrincess Ferrell MD Work Phone: [facility] CI FMComment on above:Lumbosacral neuritis; Degeneration of cervical intervertebral discStart: 06-25-2024 End: 84-61-4569Izcqla Anita Ferrell MD Work Phone: [facility] CI FMStart: 06-25-2024 End: 12-21-8059Uoukqm Anita Ferrell MD Work Phone: [facility] CI FMStart: 06-25-2024 End: 35-71-1215jxdyodqwifYVFTFM B BERRYNot AvailableStart: 04-25-2024 End: 17-04-8629ptmxpwbdehOWBVSM B BERRYNot AvailableStart: 02-28-2024 End: 73-38-2335Ykcocx Anita Ferrell MD Work Phone: [facility] CI FMStart: 02-28-2024 End: 18-41-4533Nrdgxh Anita Ferrell MD Work Phone: [facility] CI FMStart: 02-28-2024 End: 82-36-0186Gyakon outpatient visit 25 minutesBob Ferrell MD Work Phone: [facility] CI FMComment on above:Longstanding persistent atrial fibrillation (CMS/HCC); DM (diabetes mellitus), type 2 with complications (CMS/HCC); Lumbosacral neuritis; Degeneration of cervical intervertebral discStart: 02-28-2024 End: 65-23-5830jwlkglroucMZVXHK B BERRYNot AvailableStart: 12-28-2023 End: 69-83-9220Uqessxmonika Ferrell MD Work Phone: [facility] CI FMStart: 12-28-2023 End: 35-53-0870Irtppubebe Ferrell MD Work Phone: [facility] CI FMStart: 12-28-2023 End: 96-03-9276Bwckgh outpatient visit 25 minutesBob Ferrell MD Work Phone: [facility] CI FMComment on above:Longstanding persistent atrial fibrillation (CMS/HCC) (Primary Dx); Benign essential hypertension (CMS/HCC); Type 2 diabetes mellitus with other specified complication, with long-term current use of insulin (CMS/HCC); Mixed hyperlipidemia (CMS/HCC); Encounter for monitoring direct oral anticoagulant therapyStart: 12-28-2023 End: 21-41-4893ibuhlljimzLIJGWQ B BERRYNot AvailableStart: 11-14-2023 End: 71-28-1614Dmhxki flowsheetBob Ferrell MD Work Phone: [facility] CI FMStart: 11-14-2023 End: 57-17-0819Feuife Anita Ferrell MD Work Phone: [facility] CI FMStart: 11-14-2023 End: 96-22-7799Ewpwxk outpatient visit 25 minutesBob Ferrell MD Work Phone: [facility] CI FMComment on above:Mixed hyperlipidemia (CMS/HCC) (Primary Dx); Longstanding persistent atrial fibrillation (CMS/HCC); Flu vaccine need; Generalized edema; Benign essential hypertension (CMS/HCC); GERD without esophagitis; Lumbosacral neuritis; Degeneration of cervical intervertebral discStart: 11-14-2023 End: 45-81-0620eszpfmcmclZKVCQA B BERRYNot AvailableStart: 09-12-2023 End: 37-53-9276Nnfoqefua Result EncounterGeneric External Data ProviderNOMS External Department UnsolicitedStart: 09-12-2023 End: 29-05-7584Yxagjxfpd Result EncounterGeneric External Data ProviderNOMS External Department UnsolicitedStart: 25-74-2820duzkfoakcvAY FRANCK GRIGGS Facility:H1 Procedures DateProcedureProcedure DetailPerforming ClinicianStart: 68-58-0804Tjigfonysle timeDanipinky Ferrell MD Work Phone: Start: 08-25-2024 End: 76-83-9982Xrrsibizfv glycosylated m9qEqdutu B Ferrell MD Work Phone: Start: 55-16-5165Frezkezfqv glycosylated d6sErejrktomeka Ferrell MD Work Phone: Start: 12-28-2023 End: 07-48-4438Mrtaugcxnt glycosylated i2pXibbkstomeka Ferrell MD Work Phone: Start: 70-58-8156Pyvogbtrpte timeDanipinky Ferrell MD Work Phone: Start: 50-54-6047NB ECHO DOPPLER COMPLETEGeneric External Data ProviderStart: 61-22-9040OpdhscdgvjlHoumjt Berry MD Work Phone: Plan of Treatment DateCare ActivityDetailAuthorStart: 53-45-1156Wnuzzpcbi for malignant neoplasm of colonNOMS HealthcareStart: 47-42-3118Uzmso screening for proteinDiabetes: Urine Protein ScreeningNOMS HealthcareStart: 03-07-2026Medicare Annual Wellness (AWV)Medicare Annual Wellness (AWV)[facility] HealthcareStart: 12-29-2024 End: 23-65-1359Rarxvem encounter krybjdstl79/10/2025 11:00 AM EST Office Visit [facility] [place] [address] [place] [address] Bob Ferrell MD [address] [place] [address] [facility] [place] Friedman MedinceStart: 11-25-2024 Hemoglobin A1c measurementDiabetes: Hemoglobin D8WVPSQ HealthcareStart: 10-30-2024 End: 97-75-7719Qaaivka encounter rroawbyir02/11/2025 11:30 AM EDT Office Visit [facility] [place] [address] [place] [address] Bob Ferrell MD [address] [place] [address] ArrivedNOMS [place] Friedman MedinceComment on above:ArrivedStart: 73-72-0851Mbcpsmwbg vaccinationInfluenza Vaccine (#1)[facility] HealthcareStart: 25-62-9269Nnedbawjcv A1c measurementDiabetes: Hemoglobin A1C [facility] HealthcareStart: 03-77-6318Gxfqzqyd screeningDiabetes: Retinopathy ScreeningNOMS HealthcareStart: 06-25-2024 End: 94-16-4684Plkqccm encounter emdeknpbc45/07/2025 9:30 AM EDT Office Visit [facility] [address] [place] [address] Bob Ferrell MD [address] [place] [address] ArrivedNOMS CI FMComment on above:ArrivedStart: 05-28-2024 Hemoglobin A1c measurementDiabetes: Hemoglobin Z5MEJJQ HealthcareStart: 15-07-7779Fmyou screening for proteinDiabetes: Urine Protein ScreeningNOMS HealthcareStart: 03-07-6635Qgqfbmjiie A1c measurementDiabetes: Hemoglobin A1C [facility] HealthcareStart: 01-18-2025Medicare Annual Wellness (AWV)Medicare Annual Wellness (AWV)[facility] HealthcareStart: 02-28-2024 End: 32-06-7460Hhglxbq encounter budmtxtsc99/09/2025 10:00 AM EST Office Visit [facility] [address] [place] [address] Bob Ferrell MD [address] [place] [address] ArrivedNOMS CI FMComment on above:ArrivedStart: 12-28-2023 End: 01-48-5251Quophfm encounter ajfmsokha28/08/2024 10:00 AM EST Office Visit [facility] [address] [place] [address] Bob Ferrell MD [address] [place] [address] ArrivedNOMS CI FMComment on above:ArrivedStart: 12-20-2023 Hemoglobin A1c measurementDiabetes: Hemoglobin Y3BQMAE HealthcareStart: 41-28-8606Patddzitt for malignant neoplasm of colonColonoscopyST. MARK'S [facility]OSPITAL Healthcare Start: 11-14-2023 End: 65-30-5803Yylbuyv encounter pqopmuluz13/25/2024 10:45 AM EDT Office Visit [facility] [address] [facility] [address] [place] [address] Bob Ferrell MD [address] [facility] [address] [place] [address] ArrivedNOMS CI FMComment on above:ArrivedStart: 10-21-2023 Influenza vaccinationInfluenza Vaccine (#1)[facility] HealthcareStart: 02-19-2010 Pneumococcal Vaccine: 65+ Years (2 of 2 - PCV)Pneumococcal Vaccine: 65+ Years (2 of 2 - PCV)[facility] HealthcareStart: 85-36-9263Hkcdxvfsl for malignant neoplasm of colonMS Healthcare Immunizations Immunization DateImmunizationNotesCare DbubssxwMvnhahdk17-52-6739Mpxnkwoxq, High-dose Seasonal, Quadrivalent, Preservative Malissa Ferrell MD Work Phone: [phone] [place], [place] [address]Ayfdyhvnrs72-02-4854esmcfipgy virus vaccine, unspecified formulationBob Ferrell MD Work Phone: [phone] [place], [place] [address]Lvqnbllmgk15-31-8866Akzbpeafs, High-dose Seasonal, Quadrivalent, Preservative Malissa Ferrell MD Work Phone: [facility] HospitalTsdjwpnbgo98-58-2290ymfbepfjd virus vaccine, unspecified formulationBob Ferrell MD Work Phone: [phone] [place], [place] [address]Tdwzzqtrhe40-62-2366avqzbkrdj, high dose seasonal, preservativeJavier Ferrell MD Work Phone: [phone] [place], [place] [address]Plitloaweg55-28-6360cqfuxacwj, high dose seasonal, preservativeJavier Ferrell MD Work Phone: [phone] [place], [place] [address]Ieagcmtinj89-28-7921Uprgskaav, High-dose Seasonal, Quadrivalent, Preservative Malissa Ferrell MD Work Phone: [phone] [place], [place] [address]Egsoihfmxi05-98-3043pgfvtdbcg, injectable, madin jarod canine kidney, preservative Malissa Ferrell MD Work Phone: [facility] HospitalSrfvnzrlgx23-81-1339wgjxyej toxoid, reduced diphtheria toxoid, and acellular pertussis vaccine, adsorbedBob Ferrell MD Work Phone: [facility] HospitalSmxvjksguw82-59-5988Stdsmnzbl, High-dose Seasonal, Quadrivalent, Preservative Malissa Ferrell MD Work Phone: [phone] Children's Psychiatric HospitalPnttlyqihq26-56-3195oizbiaqsb, seasonal, injectable, preservative Malissa Ferrell MD Work Phone: [phone] Children's Psychiatric HospitalFavdpqxubf57-15-1029sinjocalh, injectable, quadrivalent, preservative Malissa Ferrell MD Work Phone: [phone] Children's Psychiatric HospitalXbakhpupim27-49-5193klbmzqobl, injectable, quadrivalent, preservative Malissa Ferrell MD Work Phone: [phone] Children's Psychiatric HospitalEbihkgxkpj86-71-8693bmtragtsm virus vaccine, split virus (incl. purified surface antigen)Bob Ferrell MD Work Phone: [phone] Children's Psychiatric HospitalLndpxqeyab46-20-4729bioxosks influenza, intradermal, preservative Malissa Ferrell MD Work Phone: [facility] HospitalUxrnmyeruh98-35-5196fqxzeb vaccine, liveDyanira Ferrell MD Work Phone: [phone] Children's Psychiatric HospitalDzdvmqaruw74-16-0334lfvvusuipmfs polysaccharide vaccine, 23 valentBob Ferrell MD Work Phone: [facility] HospitalNcqgqtkeeg16-06-4914nxfqclp toxoid, reduced diphtheria toxoid, and acellular pertussis vaccine, Cindy Ferrell MD Work Phone: [facility] Payers DatePayer CategoryPayerPolicy ID2018MedicareANTHEM MEDICARE ADVANTAGE ANTHEM MEDICARE ADVANTAGE [id number] 2017-Present [address] [place] [id number] 2018Medicare (Managed Care)[employer] MEDICARE ADVANTAGE Member Subscriber Plan / Payer (Effective 2017-Present) Name: Ben Hernandez Relation to Subscriber: Self Name: Ben Knight Jr Payer ID: Not on file Group ID: [id number] Type: Not on file Address: [place] [id number] [id number] [id number] [id number] [id number] 2.[id number] 2.0.1.759050.3.57[id number] 2.0.1.671763.3.57[id number] 2.0.1.274594.3.579.2.1259 Social History DateTypeDetailFacilityStart: 33-42-0642Bjcajri smoking status NHISNever smoked tobaccoNOMS HealthcareStart: 47-83-6244Xltfdva use and exposureSmokeless tobacco non-userNOMS HealthcareStart: 07-25-2023 End: 45-84-5384Bzwbxeqzg beverage intakeEx-drinker (finding)[facility] Start: 08-15-2022 End: 79-27-5688Qcsgqwu of Social functionST. MARK'S HOSPITAL HealthcareStart: 08-15-2022 End: [id number] Health LiteracyHawthorn Children's Psychiatric HospitalStart: 94-27-0197Vzk often do you need to have someone help you when you read instructions, pamphlets, or other written material from your doctor or pharmacy [SILS]NeverNOMS Healthcare Within the last year, have you been afraid of your partner or ex-partner?NoNOMS HealthcareDo you belong to any clubs or organizations such as jainism groups, unions, frago2 media or athletic groups, or school groups?YesNOMS HealthcareAre you now , , , , never or living with a partner?WidowedNOTN HealthcareHow often to you have a drink containing alcohol? NeverNOMS HealthcareDo you feel stress - tense, restless, nervous, or anxious, or unable to sleep at night because yourmind is troubled all the time - these days [OSQ]Not at allNOTN Healthcare(I/We) worried whether (my/our) food would run out before (I/we) got money to buy more.Never trueST. MARK'S HOSPITAL HealthcareStart: 54-10-2016Wqz [facility]Start: 04-25-2024 End: 87-14-8069Resgttbcm beverage intakeLifetime non-drinker (finding)[facility] Functional Status BxlmBphzlqaripDfdotxFykoefnb85-70-9338Yqledkb Health Questionnaire 2 item (PHQ- 2) [Reported][facility] Psychiatric HospitalJzfbpedfss70-28-3388Jbslnmr Health Questionnaire 2 item (PHQ- 2) [Reported][facility] Psychiatric HospitalXujcvhvgqa36-99-6910Cvvzi score [AUDIT-C]0 11/07/2023 11:21 AM EDT Mychart, GenericHawthorn Children's Psychiatric HospitalThxaqwqpzj88-61-3796Gxo often do you have a drink containing alcohol?Never 11/07/2023 11:21 AM EDT Mychart, Generic NeverHawthorn Children's Psychiatric HospitalTpwxnrhslx45-03-5816Kzygitirym statusPatient does not drink 11/07/2023 11:21 AM EDT Mychart, Generic Patient does not drinkST. MARK'S HOSPITAL Czddsaeibr81-48-4962Sde often do you have 6 or more drinks on 1 occasion?Never 11/07/2023 11:21 AM EDT Mara Childs [facility] Clinical Notes 11-14-2023 to 10-30-2024 Note Date & [id number] History of Present illness Narrative* Bob Ferrell MD - 10/30/2024 11:30 AM EDT Images from the original note were not included. HPI INR VISIT Additional comments: Coumadin 10mg M/W/F 5mg all other days Med Refill Additional comments: Hydrocodone--DM jenny FYI Additional comments: Pt stopped lisinopril that cardiology had started him on -- he stopped it lastweek due to dizziness--he is going to call them and let them know he stopped that med Last edited by Carolann Dover LPN on 10/30/2024 11:24 AM. Subjective Patient ID: Manfred Knight Jr is a 74 y.o. male who presents for INR VISIT (Coumadin 10mg M/W/F 5mg all other days), Med Refill (Hydrocodone--DM jenny), and FYI (Pt stopped lisinopril that cardiology had started him on -- he stopped it last week due to dizziness--he is going to call them and let them know he stopped that med). Subjective Patient is a 72 y.o. male who presents for follow-up of atrial fibrillation. Onset was years ago, and have been stable since that time. Associated symptoms include: none. The patient denies chest pain, dizziness, palpitations, rapid heart beat, slow heart beat, and syncope. The patient has a past history of atrial fibrillation. The patient denies a past history of atrial fibrillation. Taking coumadin as directed Med Refill Associated symptoms include neck pain. Pertinent negatives include no abdominal pain, chest pain, coughing, fatigue, nausea or vomiting. Diabetes Pertinent negatives for diabetes include no chest pain and no fatigue. Current Outpatient Medications on File Prior to Visit Medication Sig Dispense Refill atorvastatin (Lipitor) 20 MG tablet TAKE ONE TABLET BY MOUTH ONCE DAILY 100 tablet 3 carvedilol (Coreg) 12.5 MG tablet TAKE 1 TABLET BY MOUTH IN THE MORNING AND 1 TABLET IN THE EVENINGWITH MEALS. 200 tablet 3 cyclobenzaprine (Flexeril) 10 MG tablet Take 1 tablet (10 mg) by mouth 3 (three) times a day as needed for muscle spasms Take one capsule up to three times daily for 90 days 300 tablet 3 digoxin (Lanoxin) 125 MCG tablet TAKE ONE TABLET BY MOUTH EVERY DAY 100 tablet 3 dilTIAZem CD (Cardizem CD) 240 MG 24 hr capsule Take 1 tablet by mouth daily 90 capsule 3 furosemide (Lasix) 20 MG tablet TAKE ONE TABLET BY MOUTH EVERY DAY 90 tablet 3 Multiple Vitamins-Minerals (Multi For Him 50+) tablet 1 (one) time each day at the same time. omega-3 (fish oil) 1000 MG capsule 1 capsule 1 (one) time each day at the same time. omeprazole (PriLOSEC) [address] capsule TAKE ONE CAPSULE BY MOUTH EVERY DAY AT THE SAME TIME 100 capsule 3 Turmeric 500 MG tablet 1 (one) time each day at the same time. warfarin (Coumadin) 5 MG tablet TAKE 2 TABLETS BY MOUTH 3 TIMES A WEEK AND 1 TABLET 4 TIMES A WEEK 143 tablet 3 [DISCONTINUED] HYDROcodone-acetaminophen ([place]) 5-325 MG tablet Take 2 tablets by mouth every 6 (six) hours if needed for severe pain 120 tablet 0 [DISCONTINUED] lisinopril 20 MG tablet Take 20 mg by mouth in the morning. [DISCONTINUED] warfarin (Coumadin) 5 MG tablet Take 2 tablets by mouth 3 times a week and 1 tablet 4 times a week 143 tablet 3 No current facility-administered medications on file prior to visit. I have reviewed and reconciled the history and medication list with the patient today. No Known Allergies Social History Tobacco Use Smoking status: Never Smokeless tobacco: Never Vaping Use Vaping status: Never Used Substance Use Topics Alcohol use: Never Drug use: Never Family History Problem Relation Name Age of Onset Lung cancer Mother Heart disease Father Ben Knight Sr. Arthritis Paternal Grandmother Melida Knight Heart disease Brother Terrell Knight Past Medical History: Diagnosis Date A-fib (HCC) Arthritis Cataract 06/1996 Colon polyp GERD (gastroesophageal reflux disease) 2009 HL (hearing loss) 2008 Hyperlipemia Hypertension 2002 Migraine Obesity MINERVA (obstructive sleep apnea) Varicella 195 Visual impairment 1977 Past Surgical History: Procedure Laterality Date ANKLE SURGERY Left x5 APPENDECTOMY COLONOSCOPY W/ POLYPECTOMY 11/2013 NECK SURGERY SPINE SURGERY 2008 TONSILLECTOMY Visit Vitals BP 158/74 Pulse 78 Ht 5' 10 Wt 379 lb SpO2 96% BMI 54.38 kg/m Smoking Status Never BSA 2.91 m Review of Systems Constitutional: Negative for fatigue. Respiratory: Negative for cough. Cardiovascular: Negative for chest pain. Gastrointestinal: Negative for abdominal pain, nausea and vomiting. Musculoskeletal: Positive for neck pain. Objective Physical Exam Constitutional: General: He is not in acute distress. HENT: Head: Normocephalic and atraumatic. Cardiovascular: Rate and Rhythm: Normal rate. Rhythm irregular. Heart sounds: Murmur heard. Systolic murmur is present with a grade of 2/6. Pulmonary: Effort: Pulmonary effort is normal. No respiratory distress. Breath sounds: Normal breath sounds. No wheezing. Abdominal: General: Bowel sounds are normal. There is no distension. Palpations: Abdomen is soft. Tenderness: There is no abdominal tenderness. There is no guarding. Musculoskeletal: Right lower leg: Edema present. Left lower leg: Edema present. Neurological: General: No focal deficit present. Mental Status: He is alert and oriented to person, place, and time. Gait: Gait abnormal. Psychiatric: Mood and Affect: Mood normal. Office Visit on 10/30/2024 Component Date Value Ref Range Status RESULTS 10/30/2024 2.7 Final Assessment/Plan Diagnoses and all orders for this visit: Longstanding persistent atrial fibrillation (HCC) - POCT Protime-INR, fingerstick docked device - The patient has been compliant with Coumadin therapy and INR is currently within therapeutic range. Denies any abnormal bleeding. Return to clinic in 8 weeks for INR recheck. Lumbosacral neuritis - HYDROcodone-acetaminophen ([place]) 5-325 MG tablet; Take 2 tablets by mouth every 6 (six) hours ifneeded for severe pain Degeneration of cervical intervertebral disc - HYDROcodone-acetaminophen ([place]) 5-325 MG tablet; Take 2 tablets by mouth every 6 (six) hours ifneeded for severe pain - Medication choice and dosage is appropriate for patient's current medical conditions. Patient will continue to be required to be seen in our office at least every three months for monitoring. At each follow up visit I will reassess the patient's need for the medication. Patient is to have this medication prescribed only through this office. Failure to follow the rules and regulations will result in tapering and discontinuation of medications if applicable. Patient verbalized understanding. OARRS Report was reviewed for this patient. Follow up in about 2 months (around 12/30/2024) for PT/INR. documented in this encounterHawthorn Children's Psychiatric [id number] History of Present illness Narrative* Bob Ferrell MD - 08/25/2024 10:15 AM EDT Images from the original note were not included. HPI INR VISIT Additional comments: Coumadin 10mg M/W/F 5mg all other days Last edited by Carolann Dover LPN on 08/25/2024 10:00 AM. Subjective Patient ID: Manfred Knight Jr is a 73 y.o. male who presents for INR VISIT (Coumadin 10mg M/W/F 5mg all other days) and Diabetes. Subjective Patient is a 72 y.o. male who presents for follow-up of atrial fibrillation. Onset was years ago, and have been stable since that time. Associated symptoms include: none. The patient denies chest pain, dizziness, palpitations, rapid heart beat, slow heart beat, and syncope. The patient has a past history of atrial fibrillation. The patient denies a past history of atrial fibrillation. Taking coumadin as directed Diabetes Mellitus Patient presents for follow up of diabetes. Current symptoms include: none. Patient denies foot ulcerations, hypoglycemia , paresthesia of the feet, and polydipsia. Evaluation to date has included: fasting blood sugar, fasting lipid panel, and hemoglobin A1C. Home sugars: patient does not check sugars. Diabetes Pertinent negatives for diabetes include no chest pain and no fatigue. Med Refill Associated symptoms include neck pain. Pertinent negatives include no abdominal pain, chest pain, coughing, fatigue, nausea or vomiting. Over the past 2 weeks, how often have you been bothered by any of the following problems? Little interest or pleasure in doing things: Not at all Feeling down, depressed, or hopeless: Not at all Patient Health Questionnaire-2 Score: 0 Current Outpatient Medications on File Prior to Visit Medication Sig Dispense Refill atorvastatin (Lipitor) 20 MG tablet TAKE ONE TABLET BY MOUTH ONCE DAILY 100 tablet 3 carvedilol (Coreg) 12.5 MG tablet TAKE 1 TABLET BY MOUTH IN THE MORNING AND 1 TABLET IN THE EVENINGWITH MEALS. 200 tablet 3 cyclobenzaprine (Flexeril) 10 MG tablet Take 1 tablet (10 mg) by mouth 3 (three) times a day as needed for muscle spasms Take one capsule up to three times daily for 90 days 300 tablet 3 digoxin (Lanoxin) 125 MCG tablet Take 1 tablet (125 mcg) by mouth Daily 90 tablet 3 dilTIAZem CD (Cardizem CD) 240 MG 24 hr capsule Take 1 tablet by mouth daily 90 capsule 3 furosemide (Lasix) 20 MG tablet Take 1 tablet (20 mg) by mouth Daily 90 tablet 3 HYDROcodone-acetaminophen ([place]) 5-325 MG tablet Take 2 tablets by mouth every 6 (six) hours if needed for severe pain 120 tablet 0 lisinopril 20 MG tablet Take 20 mg by mouth in the morning. Multiple Vitamins-Minerals (Multi For Him 50+) tablet 1 (one) time each day at the same time. omega-3 (fish oil) 1000 MG capsule 1 capsule 1 (one) time each day at the same time. Turmeric 500 MG tablet 1 (one) time each day at the same time. warfarin (Coumadin) 5 MG tablet Take 2 tablets by mouth 3 times a week and 1 tablet 4 times a week 143 tablet 3 [DISCONTINUED] omeprazole (PriLOSEC) [address] capsule Take 1 capsule (40 mg) by mouth 1 (one) time each day at the same time 90 capsule 3 [DISCONTINUED] ramipril (Altace) 10 MG capsule Take 1 capsule (10 mg) by mouth Daily 90 capsule 3 No current facility-administered medications on file prior to visit. I have reviewed and reconciled the history and medication list with the patient today. No Known Allergies Social History Tobacco Use Smoking status: Never Smokeless tobacco: Never Vaping Use Vaping status: Never Used Substance Use Topics Alcohol use: Never Drug use: Never Family History Problem Relation Name Age of Onset Lung cancer Mother Heart disease Father Ben Knight Sr. Arthritis Paternal Grandmother Melida Knight Heart disease Brother Terrell Knight Past Medical History: Diagnosis Date A-fib (HCC) Arthritis Cataract 06/1996 Colon polyp GERD (gastroesophageal reflux disease) 2009 HL (hearing loss) 2007 Hyperlipemia Hypertension 2002 Migraine Obesity MINERVA (obstructive sleep apnea) Varicella 195 Visual impairment 1978 Past Surgical History: Procedure Laterality Date ANKLE SURGERY Left x5 APPENDECTOMY COLONOSCOPY W/ POLYPECTOMY 11/2013 NECK SURGERY SPINE SURGERY 2008 TONSILLECTOMY Visit Vitals BP 132/70 Pulse 75 Ht 5' 10 Wt 369 lb SpO2 95% BMI 52.95 kg/m Smoking Status Never BSA 2.87 m Review of Systems Constitutional: Negative for fatigue. Respiratory: Negative for cough. Cardiovascular: Negative for chest pain. Gastrointestinal: Negative for abdominal pain, nausea and vomiting. Musculoskeletal: Positive for neck pain. Objective Physical Exam Constitutional: General: He is not in acute distress. HENT: Head: Normocephalic and atraumatic. Cardiovascular: Rate and Rhythm: Normal rate. Rhythm irregular. Heart sounds: Murmur heard. Systolic murmur is present with a grade of 2/6. Pulmonary: Effort: Pulmonary effort is normal. No respiratory distress. Breath sounds: Normal breath sounds. No wheezing. Abdominal: General: Bowel sounds are normal. There is no distension. Palpations: Abdomen is soft. Tenderness: There is no abdominal tenderness. There is no guarding. Musculoskeletal: Right lower leg: Edema present. Left lower leg: Edema present. Neurological: General: No focal deficit present. Mental Status: He is alert and oriented to person, place, and time. Gait: Gait abnormal. Psychiatric: Mood and Affect: Mood normal. Office Visit on 08/25/2024 Component Date Value Ref Range Status Hemoglobin A1C 08/25/2024 7.9 Final RESULTS 08/25/2024 2.1 Final Telephone on 08/18/2024 Component Date Value Ref Range Status WHITE BLOOD CELL COUNT 08/18/2024 9.6 3.8 - 10.8 Thousand/uL Final RED BLOOD CELL COUNT 08/18/2024 4.95 4.20 - 5.80 Million/uL Final HEMOGLOBIN 08/18/2024 14.8 13.2 - 17.1 g/dL Final HEMATOCRIT 08/18/2024 49.0 38.5 - 50.0 % Final MCV 08/18/2024 99.0 80.0 - 100.0 fL Final MCH 08/18/2024 29.9 27.0 - 33.0 pg Final MCHC 08/18/2024 30.2 (L) 32.0 - 36.0 g/dL Final Comment: For adults, a slight decrease in the calculated MCHC value (in the range of 30 to 32 g/dL) is most likely not clinically significant; however, it should be interpreted with caution in correlation with other red cell parameters and the patient's clinical condition. RDW 08/18/2024 14.8 11.0 - 15.0 % Final PLATELET COUNT 08/18/2024 251 140 - 400 Thousand/uL Final MPV 08/18/2024 9.8 7.5 - 12.5 fL Final ABSOLUTE NEUTROPHILS 08/18/2024 6,970 1,500 - 7,800 cells/uL Final ABSOLUTE LYMPHOCYTES 08/18/2024 1,478 850 - 3,900 cells/uL Final ABSOLUTE MONOCYTES 08/18/2024 682 200 - 950 cells/uL Final ABSOLUTE EOSINOPHILS 08/18/2024 365 15 - 500 cells/uL Final ABSOLUTE BASOPHILS 08/18/2024 106 0 - 200 cells/uL Final NEUTROPHILS 08/18/2024 72.6 % Final LYMPHOCYTES 08/18/2024 15.4 % Final MONOCYTES 08/18/2024 7.1 % Final EOSINOPHILS 08/18/2024 3.8 % Final BASOPHILS 08/18/2024 1.1 % Final Glucose 08/18/2024 168 (H) 65 - 99 mg/dL Final Comment: Fasting reference interval For someone without known diabetes, a glucose value >125 mg/dL indicates that they may have diabetes and this should be confirmed with a follow-up test. BUN 08/18/2024 16 7 - 25 mg/dL Final Creatinine 08/18/2024 0.68 (L) 0.70 - 1.28 mg/dL Final EGFR 08/18/2024 99 > OR = 60 mL/min/1.73m2 Final BUN/CREATININE RATIO 08/18/2024 24 (H) 6 - 22 (calc) Final Sodium 08/18/2024 140 135 - 146 mmol/L Final Potassium, Bld 08/18/2024 4.2 3.5 - 5.3 mmol/L Final Chloride 08/18/2024 100 98 - 110 mmol/L Final Carbon Dioxide 08/18/2024 27 20 - 32 mmol/L Final Calcium 08/18/2024 9.1 8.6 - 10.3 mg/dL Final PROTEIN, TOTAL 08/18/2024 6.7 6.1 - 8.1 g/dL Final ALBUMIN 08/18/2024 4.0 3.6 - 5.1 g/dL Final GLOBULIN 08/18/2024 2.7 1.9 - 3.7 g/dL (calc) Final ALBUMIN/GLOBULIN RATIO 08/18/2024 1.5 1.0 - 2.5 (calc) Final BILIRUBIN, TOTAL 08/18/2024 0.7 0.2 - 1.2 mg/dL Final ALKALINE PHOSPHATASE 08/18/2024 84 35 - 144 U/L Final AST 08/18/2024 13 10 - 35 U/L Final ALT 08/18/2024 7 (L) 9 - 46 U/L Final CHOLESTEROL, TOTAL 08/18/2024 98 <200 mg/dL Final HDL CHOLESTEROL 08/18/2024 32 (L) > OR = 40 mg/dL Final TRIGLYCERIDES 08/18/2024 103 <150 mg/dL Final LDL CHOLESTEROL 08/18/2024 47 mg/dL (calc) Final Comment: Reference range: <100 Desirable range <100 mg/dL for primary prevention; <70 mg/dL for patients with CHD or diabetic patients with > or = 2 CHD risk factors. LDL-C is now calculated using the Sixto-Dominguez calculation, which is a validated novel method providing better accuracy than the Friedewald equation in the estimation of LDL-C. Sixto SS et al. KRIS. 2013;310(19): 8250-7384 (http://education.[employer]/faq/HML102) CHOL/HDLC RATIO 08/18/2024 3.1 <5.0 (calc) Final NON HDL CHOLESTEROL 08/18/2024 66 <130 mg/dL (calc) Final Comment: For patients with diabetes plus 1 major ASCVD risk factor, treating to a non-HDL-C goal of <100 mg/dL (LDL-C of <70 mg/dL) is considered a therapeutic option. PSA, TOTAL 08/18/2024 0.55 < OR = 4.00 ng/mL Final Comment: The total PSA value from this assay system is standardized against the WHO standard. The test result will be approximately 20% lower when compared to the equimolar-standardized total PSA (Kelsi Giovanny). Comparison of serial PSA results should be interpreted with this fact in mind. This test was performed using the Siemens chemiluminescent method. Values obtained from different assay methods cannot be used interchangeably. PSA levels, regardless of value, should not be interpreted as absolute evidence of the presence or absence of disease. CREATININE, RANDOM URINE 08/18/2024 148 20 - 320 mg/dL Final ALBUMIN, URINE 08/18/2024 71.1 See Note: mg/dL Final Comment: Reference Range: Reference Range Not established Results verified by repeat analysis on dilution. ALBUMIN/CREATININE RATIO, RANDOM U* 08/18/2024 480 (H) <30 mg/g creat Final Comment: The ADA defines abnormalities in albumin excretion as follows: Albuminuria Category Result (mg/g creatinine) Normal to Mildly increased <30 Moderately increased 30-299 Severely increased > OR = 300 The ADA recommends that at least two of three specimens collected within a 3-6 month period be abnormal before considering a patient to be within a diagnostic category. Assessment/Plan Diagnoses and all orders for this visit: Longstanding persistent atrial fibrillation (HCC) - POCT Protime-INR, fingerstick docked device - The patient has been compliant with Coumadin therapy and INR is currently within therapeutic range. Return to clinic in 8 weeks for INR recheck. Type 2 diabetes mellitus with other specified complication, with long-term current use of insulin (HCC) - POCT Glycated hemoglobin, total - A1C today 7.9% Benign essential hypertension - This is a chronic medical condition that is stable since last assessment. No changes in treatmentare suggested at this time. Mixed hyperlipidemia - Recent lab work for this condition was reviewed and discussed with the patient. Labs are at or near goal, no changes to medication are planned. Follow up in about 2 months (around 10/26/2024) for Routine F/U. documented in this encounterHawthorn Children's Psychiatric [id number] NoteCardiovascular Medicine [facility] SUBJECTIVE Chief Complaint Patient presents with Atrial Fibrillation Hypertension Hyperlipidemia Ben Knight is a 73 y.o. male here for follow-up. PMHx: a.fib, HTN, MINERVA, HLD HPI 08/19/2024 He denies any changes since last seen. BP at home running 130-140s/60-80s. HR ranging 50-90s. He has DONATO - this is stable. He has occasional episodes of palpitations where he feels off . This is a rare occurrence, happens maybe once a month. His BLE edema is stable - he wears compression stockings. Dr. Ferrell manages his warfarin. Denies c/o CP, orthopnea, PND, dizziness/LH, syncope, bleeding issues. We discussed the option of ablation. He notes prior hx of cardioversions x2 and he didn't maintain SR for more than 1-4 days. Patient Active Problem List Diagnosis Atrial fibrillation (CMS/HCC) Benign essential hypertension Dependent edema Morbid obesity (CMS/HCC) Degeneration of cervical intervertebral disc GERD without esophagitis Lumbosacral neuritis Mixed hyperlipidemia MINERVA (obstructive sleep apnea) Primary generalized hypertrophic osteoarthrosis Type 2 diabetes mellitus without complication, without long-term current use of insulin (CMS/HCC) Encounter for monitoring direct oral anticoagulant therapy Past Medical History: Diagnosis Date Atrial fibrillation (CMS/HCC) Hyperlipidemia Hypertension Family History Problem Relation Name Age of Onset Cancer Mother Heart attack Father Coronary artery disease Other Cancer Other Social History Tobacco Use Smoking status: Never Smokeless tobacco: Never Substance Use Topics Alcohol use: Not Currently Drug use: Never No Known Allergies OBJECTIVE Visit Vitals BP 143/65 (BP Location: Left arm, Patient Position: Sitting) Pulse 81 Ht 1.778 m (5' 10 ) Wt (!) 169 kg (373 lb) SpO2 96% BMI 53.52 kg/m??? Smoking Status Never BSA 2.89 m??? Medications: Current Outpatient Medications: atorvastatin (Lipitor) 20 mg tablet, Take 20 mg by mouth at bedtime., Disp: , Rfl: carvedilol (Coreg) 12.5 mg tablet, Take 1 tablet (12.5 mg) by mouth with breakfast and with evening meal., Disp: 180 tablet, Rfl: 3 cyclobenzaprine (Flexeril) 10 mg tablet, cyclobenzaprine 10 mg tablet TAKE 1 TABLET BY MOUTH THREE TIMES DAILY, Disp: , Rfl: digoxin (Lanoxin) 125 MCG tablet, Take by mouth 1 (one) time each day., Disp: , Rfl: dilTIAZem ER (Tiazac) 240 mg 24 hr capsule, diltiazem CD 240 mg capsule,extended release 24 hr, Disp: , Rfl: furosemide (Lasix) 20 mg tablet, Take by mouth in the morning., Disp: , Rfl: HYDROcodone-acetaminophen ([place]) 5-325 mg tablet, hydrocodone 5 mg-acetaminophen 325 mg tablet TAKE 1 TO 2 TABLETS BY MOUTH EVERY 6 HOURS NEEDED, Disp: , Rfl: omeprazole (PriLOSEC) [address] capsule, , Disp: , Rfl: warfarin (Coumadin) 10 mg tablet, warfarin 10 mg tablet, Disp: , Rfl: lisinopril 20 mg tablet, Take 1 tablet (20 mg) by mouth in the morning., Disp: 90 tablet, Rfl: 3 Physical Exam Constitutional: Appearance: Normal appearance. He is obese. HENT: Head: Normocephalic and atraumatic. Right Ear: External ear normal. Left Ear: External ear normal. Eyes: Extraocular Movements: Extraocular movements intact. Pupils: Pupils are equal, round, and reactive to light. Neck: Vascular: No carotid bruit. Cardiovascular: Rate and Rhythm: Normal rate. Rhythm irregular. Pulses: Normal pulses. Heart sounds: Normal heart sounds. Pulmonary: Effort: Pulmonary effort is normal. Breath sounds: Normal breath sounds. Abdominal: General: Bowel sounds are normal. Palpations: Abdomen is soft. Musculoskeletal: General: Normal range of motion. Cervical back: Neck supple. Right lower leg: Edema present. Left lower leg: Edema present. Comments: +1 BLE edema, compression stockings in place Skin: General: Skin is warm and dry. Neurological: General: No focal deficit present. Mental Status: He is alert and oriented to person, place, and time. Psychiatric: Mood and Affect: Mood normal. Behavior: Behavior normal. Thought Content: Thought content normal. Judgment: Judgment normal. Labs: No results found for: EXTCMP , BMPR1A , CBCDIF , BNP , LASAP , RED No visits with results within 6 Month(s) from this visit. Latest known visit with results is: No results found for any previous visit. No results found for: CHOL , TRIG , HDL , LDLDIRECT Lipids 09/19/2023 Chol 95, HDL 36, trig 101, LDL 41 HgbA1c 8.2 04/30/2023 Cr 0.67, BUN 14, K 4.4, Na 142, eGFR 100, AST 16, ALT 10 Hgb 15.2, plt 250 Labs 09/08/2021 CMP: Cr. 0.62, BUN 12, K 4.1, GFR 104, AST 13, ALT 9 CBC: WBC 10.9, hgb 14.6, plt 290 Lipids: chol 114, HDL 41, trig 96, LDL 55 TSH: 1.49 Testing/Procedures: ECHO 09/11/2023 ECHO (2011) ASSESSMENT/PLAN: Diagnoses and all orders for this visit: Benign hypertensive heart disease without heart failure - Basic meta (more content not included)...[facility] 08-19-2024 NotePatient is here today for a 1 year follow up. Patient states he has some DONATO and occasional palpitations. Patient states he is doing well. Review of Systems Cardiovascular: Positive for dyspnea on exertion and palpitations.[facility]01-09-2025 History of Present illness Narrative* Bob Ferrell MD - 02/28/2024 10:00 AM EST HPI INR VISIT Additional comments: Coumadin 10mg M/W/F 5mg all other days Med Refill Additional comments: Hydrocodone--DM jenny Last edited by Carolann Dover LPN on 02/28/2024 9:47 AM. Subjective Patient ID: Manfred Knight Jr is a 73 y.o. male who presents for INR VISIT (Coumadin 10mg M/W/F 5mg all other days), Diabetes, and Med Refill (Hydrocodone--DM jenny). Small bump on left lower eye x 3 days denies pain or itching HPI Current Outpatient Medications on File Prior to Visit Medication Sig Dispense Refill atorvastatin (Lipitor) 20 MG tablet TAKE 1 TABLET ONCE DAILY 100 tablet 3 carvedilol (Coreg) 12.5 MG tablet Take 1 tablet (12.5 mg) by mouth in the morning and 1 tablet (12.5 mg) in the evening. Take with meals. 180 tablet 3 cyclobenzaprine (Flexeril) 10 MG tablet Take 1 tablet (10 mg) by mouth 3 (three) times a day as needed for muscle spasms Take one capsule up to three times daily for 90 days 300 tablet 3 digoxin (Lanoxin) 125 MCG tablet Take 1 tablet (125 mcg) by mouth Daily 90 tablet 3 dilTIAZem CD (Cardizem CD) 240 MG 24 hr capsule Take 1 tablet by mouth daily 90 capsule 3 furosemide (Lasix) 20 MG tablet Take 1 tablet (20 mg) by mouth Daily 90 tablet 3 Multiple Vitamins-Minerals (Multi For Him 50+) tablet 1 (one) time each day at the same time. omega-3 (fish oil) 1000 MG capsule 1 capsule 1 (one) time each day at the same time. omeprazole (PriLOSEC) [address] capsule Take 1 capsule (40 mg) by mouth 1 (one) time each day at thesame time 90 capsule 3 ramipril (Altace) 10 MG capsule Take 1 capsule (10 mg) by mouth Daily 90 capsule 3 Turmeric 500 MG tablet 1 (one) time each day at the same time. warfarin (Coumadin) 5 MG tablet Take 2 tablets by mouth 3 times a week and 1 tablet 4 times a week 143 tablet 3 [DISCONTINUED] HYDROcodone-acetaminophen ([place]) 5-325 MG tablet Take 2 tablets by mouth every 6 (six) hours if needed for severe pain 120 tablet 0 No current facility-administered medications on file prior to visit. I have reviewed and reconciled the history and medication list with the patient today. No Known Allergies Social History Tobacco Use Smoking status: Never Smokeless tobacco: Never Substance Use Topics Alcohol use: Not Currently Family History Problem Relation Name Age of Onset Lung cancer Mother Heart disease Father Past Medical History: Diagnosis Date A-fib (CMS/HCC) Arthritis Colon polyp Hyperlipemia (CMS/HCC) Migraine (CMS/HCC) MINERVA (obstructive sleep apnea) Past Surgical History: Procedure Laterality Date ANKLE SURGERY Left x5 APPENDECTOMY COLONOSCOPY W/ POLYPECTOMY 11/2013 NECK SURGERY TONSILLECTOMY Visit Vitals BP 136/78 Pulse 77 Ht 5' 10 Wt 376 lb SpO2 96% BMI 53.95 kg/m Smoking Status Never BSA 2.91 m Review of Systems Objective Physical Exam Constitutional: General: He is not in acute distress. HENT: Head: Normocephalic and atraumatic. Cardiovascular: Rate and Rhythm: Normal rate. Rhythm irregular. Heart sounds: Murmur heard. Systolic murmur is present with a grade of 2/6. Pulmonary: Effort: Pulmonary effort is normal. No respiratory distress. Breath sounds: Normal breath sounds. No wheezing. Abdominal: General: Bowel sounds are normal. There is no distension. Palpations: Abdomen is soft. Tenderness: There is no abdominal tenderness. There is no guarding. Musculoskeletal: Right lower leg: Edema present. Left lower leg: Edema present. Neurological: General: No focal deficit present. Mental Status: He is alert and oriented to person, place, and time. Gait: Gait abnormal. Psychiatric: Mood and Affect: Mood normal. Office Visit on 02/28/2024 Component Date Value Ref Range Status Hemoglobin A1C 02/28/2024 7.6 Final RESULTS 02/28/2024 2.4 Final Assessment/Plan Diagnoses and all orders for this visit: Longstanding persistent atrial fibrillation (CMS/HCC) - POCT Protime-INR, fingerstick docked device - No dose change. DM (diabetes mellitus), type 2 with complications (CMS/HCC) - POCT Glycated hemoglobin, total - Continue weight losson no meds for this at present. Recheck A1C in about 4 months. Lumbosacral neuritis - HYDROcodone-acetaminophen ([place]) 5-325 MG tablet; Take 2 tablets by mouth every 6 (six) hours ifneeded for severe pain Degeneration of cervical intervertebral disc - HYDROcodone-acetaminophen ([place]) 5-325 MG tablet; Take 2 tablets by mouth every 6 (six) hours ifneeded for severe pain Follow up in about 8 weeks (around 04/24/2024) for PT/INR. documented [facility] [id number] History of Present illness Narrative* Bob Ferrell MD - 12/28/2023 10:00 AM EST Images from the original note were not included. HPI INR VISIT Additional comments: Coumadin 10mg M/W/F 5mg all other days Last edited by Carolann Dover LPN on 12/28/2023 9:28 AM. Subjective Patient ID: Manfred Knight Jr is a 73 y.o. male who presents for INR VISIT (Coumadin 10mg M/W/F 5mg all other days) and Diabetes. Subjective Patient is a 72 y.o. male who presents for follow-up of atrial fibrillation. Onset was years ago, and have been stable since that time. Associated symptoms include: none. The patient denies chest pain, dizziness, palpitations, rapid heart beat, slow heart beat, and syncope. The patient has a past history of atrial fibrillation. The patient denies a past history of atrial fibrillation. Taking coumadin as directed Diabetes Mellitus Patient presents for follow up of diabetes. Current symptoms include: none. Patient denies foot ulcerations, hypoglycemia , paresthesia of the feet, and polydipsia. Evaluation to date has included: fasting blood sugar, fasting lipid panel, and hemoglobin A1C. Home sugars: patient does not check sugars. Diabetes Pertinent negatives for diabetes include no chest pain and no fatigue. Med Refill Associated symptoms include neck pain. Pertinent negatives include no abdominal pain, chest pain, coughing, fatigue, nausea or vomiting. Current Outpatient Medications on File Prior to Visit Medication Sig Dispense Refill atorvastatin (Lipitor) 20 MG tablet TAKE 1 TABLET ONCE DAILY 100 tablet 3 carvedilol (Coreg) 12.5 MG tablet Take 1 tablet (12.5 mg) by mouth in the morning and 1 tablet (12.5 mg) in the evening. Take with meals. 180 tablet 3 cyclobenzaprine (Flexeril) 10 MG tablet Take 1 tablet (10 mg) by mouth 3 (three) times a day as needed for muscle spasms Take one capsule up to three times daily for 90 days 300 tablet 3 digoxin (Lanoxin) 125 MCG tablet Take 1 tablet (125 mcg) by mouth Daily 90 tablet 3 dilTIAZem CD (Cardizem CD) 240 MG 24 hr capsule Take 1 tablet by mouth daily 90 capsule 3 furosemide (Lasix) 20 MG tablet Take 1 tablet (20 mg) by mouth Daily 90 tablet 3 HYDROcodone-acetaminophen ([place]) 5-325 MG tablet Take 2 tablets by mouth every 6 (six) hours if needed for severe pain 120 tablet 0 Multiple Vitamins-Minerals (Multi For Him 50+) tablet 1 (one) time each day at the same time. omega-3 (fish oil) 1000 MG capsule 1 capsule 1 (one) time each day at the same time. omeprazole (PriLOSEC) [address] capsule Take 1 capsule (40 mg) by mouth 1 (one) time each day at thesame time 90 capsule 3 ramipril (Altace) 10 MG capsule Take 1 capsule (10 mg) by mouth Daily 90 capsule 3 Turmeric 500 MG tablet 1 (one) time each day at the same time. warfarin (Coumadin) 5 MG tablet Take 2 tablets (10 mg) by mouth 3 (three) times a week AND 1 tablet(5 mg) 4 (four) times a week. 143 tablet 3 No current facility-administered medications on file prior to visit. I have reviewed and reconciled the history and medication list with the patient today. No Known Allergies Social History Tobacco Use Smoking status: Never Smokeless tobacco: Never Substance Use Topics Alcohol use: Not Currently Family History Problem Relation Name Age of Onset Lung cancer Mother Heart disease Father Past Medical History: Diagnosis Date A-fib (CMS/HCC) Arthritis Colon polyp Hyperlipemia (CMS/HCC) Migraine (CMS/HCC) MINERVA (obstructive sleep apnea) Past Surgical History: Procedure Laterality Date ANKLE SURGERY Left x5 APPENDECTOMY COLONOSCOPY W/ POLYPECTOMY 11/2013 NECK SURGERY TONSILLECTOMY Visit Vitals BP 136/78 Pulse 84 Ht 5' 10 Wt 388 lb SpO2 92% BMI 55.67 kg/m Smoking Status Never BSA 2.95 m Review of Systems Constitutional: Negative for fatigue. Respiratory: Negative for cough. Cardiovascular: Negative for chest pain. Gastrointestinal: Negative for abdominal pain, nausea and vomiting. Musculoskeletal: Positive for neck pain. Objective Physical Exam Constitutional: General: He is not in acute distress. HENT: Head: Normocephalic and atraumatic. Cardiovascular: Rate and Rhythm: Normal rate. Rhythm irregular. Heart sounds: Murmur heard. Systolic murmur is present with a grade of 2/6. Pulmonary: Effort: Pulmonary effort is normal. No respiratory distress. Breath sounds: Normal breath sounds. No wheezing. Abdominal: General: Bowel sounds are normal. There is no distension. Palpations: Abdomen is soft. Tenderness: There is no abdominal tenderness. There is no guarding. Musculoskeletal: Right lower leg: Edema present. Left lower leg: Edema present. Neurological: General: No focal deficit present. Mental Status: He is alert and oriented to person, place, and time. Gait: Gait abnormal. Psychiatric: Mood and Affect: Mood normal. Office Visit on 12/28/2023 Component Date Value Ref Range Status RESULTS 12/28/2023 2.3 Final Hemoglobin A1C 12/28/2023 7.7 Final Assessment/Plan Diagnoses and all orders for this visit: Longstanding persistent atrial fibrillation (CMS/HCC) - POCT Protime-INR, fingerstick docked device - The patient has been compliant with Coumadin therapy and INR is currently within therapeutic range. Return to clinic in 8 weeks for INR recheck. Benign essential hypertension (CMS/HCC) Type 2 diabetes mellitus with other specified complication, with long-term current use of insulin (CMS/HCC) - POCT Glycated hemoglobin, total - On no meds. A1C is improving with improved diet. Recheck in 2 months, if not trending better may start medication for this. Mixed hyperlipidemia ([facility]) Encounter for monitoring direct oral anticoagulant therapy Follow up in about 2 months (around 02/27/2024) for DM- A1C, PT/INR. documented in this encounterHaw[facility] [id number] History of Present illness Narrative* Bob Ferrell MD - 11/14/2023 10:45 AM EDT Images from the original note were not included. HPI INR VISIT Additional comments: Coumadin 10mg M/W/F 5mg all other days Results Additional comments: labs Med Refill Additional comments: Lasix,diltalizem,ramiprilomeprazole,-- carelon Hydrocodone--dm jenny Last edited by Carolann Dover LPN on 11/14/2023 10:28 AM. Subjective Patient ID: Manfred Knight Jr is a 73 y.o. male who presents for INR VISIT (Coumadin 10mg M/W/F 5mg all other days), Results (labs), Diabetes, and Med Refill (Lasix,diltalizem,ramiprilomeprazole,-- carelon//Hydrocodone--dm jenny). Subjective Patient is a 72 y.o. male who presents for follow-up of atrial fibrillation. Onset was years ago, and have been stable since that time. Associated symptoms include: none. The patient denies chest pain, dizziness, palpitations, rapid heart beat, slow heart beat, and syncope. The patient has a past history of atrial fibrillation. The patient denies a past history of atrial fibrillation. Taking coumadin as directed Diabetes Mellitus Patient presents for follow up of diabetes. Current symptoms include: none. Patient denies foot ulcerations, hypoglycemia , paresthesia of the feet, and polydipsia. Evaluation to date has included: fasting blood sugar, fasting lipid panel, and hemoglobin A1C. Home sugars: patient does not check sugars. Diabetes Pertinent negatives for diabetes include no chest pain and no fatigue. Med Refill Associated symptoms include neck pain. Pertinent negatives include no abdominal pain, chest pain, coughing, fatigue, nausea or vomiting. Current Outpatient Medications on File Prior to Visit Medication Sig Dispense Refill atorvastatin (Lipitor) 20 MG tablet TAKE 1 TABLET ONCE DAILY 100 tablet 3 carvedilol (Coreg) 12.5 MG tablet Take 1 tablet (12.5 mg) by mouth in the morning and 1 tablet (12.5 mg) in the evening. Take with meals. 180 tablet 3 cyclobenzaprine (Flexeril) 10 MG tablet Take 1 tablet (10 mg) by mouth 3 (three) times a day as needed for muscle spasms Take one capsule up to three times daily for 90 days 300 tablet 3 digoxin (Lanoxin) 125 MCG tablet Take 1 tablet (125 mcg) by mouth Daily 90 tablet 3 Multiple Vitamins-Minerals (Multi For Him 50+) tablet 1 (one) time each day at the same time. omega-3 (fish oil) 1000 MG capsule 1 capsule 1 (one) time each day at the same time. Turmeric 500 MG tablet 1 (one) time each day at the same time. warfarin (Coumadin) 5 MG tablet Take 2 tablets (10 mg) by mouth 3 (three) times a week AND 1 tablet(5 mg) 4 (four) times a week. 143 tablet 3 [DISCONTINUED] dilTIAZem CD (Cardizem CD) 240 MG 24 hr capsule Take 1 tablet by mouth daily 90 capsule 3 [DISCONTINUED] furosemide (Lasix) 20 MG tablet TAKE 1 TABLET ONCE DAILY ASNEEDED FOR EDEMA 90 tablet 1 [DISCONTINUED] HYDROcodone-acetaminophen ([place]) 5-325 MG tablet Take 2 tablets by mouth every 6 (six) hours if needed for severe pain 120 tablet 0 [DISCONTINUED] omeprazole (PriLOSEC) [address] capsule Take 1 capsule (40 mg) by mouth 1 (one) time each day at the same time 90 capsule 2 [DISCONTINUED] ramipril (Altace) 10 MG capsule TAKE 1 CAPSULE DAILY 100 capsule 3 No current facility-administered medications on file prior to visit. I have reviewed and reconciled the history and medication list with the patient today. No Known Allergies Social History Tobacco Use Smoking status: Never Smokeless tobacco: Never Substance Use Topics Alcohol use: Not Currently Family History Problem Relation Name Age of Onset Lung cancer Mother Heart disease Father Past Medical History: Diagnosis Date A-fib (CMS/HCC) Arthritis Colon polyp Hyperlipemia (CMS/HCC) Migraine (CMS/HCC) MINERVA (obstructive sleep apnea) Past Surgical History: Procedure Laterality Date ANKLE SURGERY Left x5 APPENDECTOMY COLONOSCOPY W/ POLYPECTOMY 11/2013 NECK SURGERY TONSILLECTOMY Visit Vitals BP 138/84 Pulse 74 Ht 5' 10 Wt 386 lb SpO2 97% BMI 55.39 kg/m Smoking Status Never BSA 2.94 m Review of Systems Constitutional: Negative for fatigue. Respiratory: Negative for cough. Cardiovascular: Negative for chest pain. Gastrointestinal: Negative for abdominal pain, nausea and vomiting. Musculoskeletal: Positive for neck pain. Objective Physical Exam Constitutional: General: He is not in acute distress. HENT: Head: Normocephalic and atraumatic. Cardiovascular: Rate and Rhythm: Normal rate. Rhythm irregular. Heart sounds: Murmur heard. Systolic murmur is present with a grade of 2/6. Pulmonary: Effort: Pulmonary effort is normal. No respiratory distress. Breath sounds: Normal breath sounds. No wheezing. Abdominal: General: Bowel sounds are normal. There is no distension. Palpations: Abdomen is soft. Tenderness: There is no abdominal tenderness. There is no guarding. Musculoskeletal: Right lower leg: Edema present. Left lower leg: Edema present. Neurological: General: No focal deficit present. Mental Status: He is alert and oriented to person, place, and time. Gait: Gait abnormal. Psychiatric: Mood and Affect: Mood normal. Office Visit on 11/14/2023 Component Date Value Ref Range Status RESULTS 11/14/2023 1.8 Final Office Visit on 09/19/2023 Component Date Value Ref Range Status RESULTS 09/19/2023 3.0 Final Hemoglobin A1C 09/19/2023 8.2 Final PSA, TOTAL 09/19/2023 0.38 < OR = 4.00 ng/mL Final Comment: The total PSA value from this assay system is standardized against the WHO standard. The test result will be approximately 20% lower when compared to the equimolar-standardized total PSA (Kelsi Giovanny). Comparison of serial PSA results should be interpreted with this fact in mind. This test was performed using the Siemens chemiluminescent method. Values obtained from different assay methods cannot be used interchangeably. PSA levels, regardless of value, should not be interpreted as absolute evidence of the presence or absence of disease. CHOLESTEROL, TOTAL 09/19/2023 95 <200 mg/dL Final HDL CHOLESTEROL 09/19/2023 36 (L) > OR = 40 mg/dL Final TRIGLYCERIDES 09/19/2023 101 <150 mg/dL Final LDL-CHOLESTEROL 09/19/2023 41 mg/dL (calc) Final Comment: Reference range: <100 Desirable range <100 mg/dL for primary prevention; <70 mg/dL for patients with CHD or diabetic patients with > or = 2 CHD risk factors. LDL-C is now calculated using the [place] calculation, which is a validated novel method providing better accuracy than the Friedewald equation in the estimation of LDL-C. Sixto HOFFMAN et al. KRIS. 2013;310(19): 8390-0032 (http://education.OneCubicle.Nanoference/faq/KYP985) CHOL/HDLC RATIO 09/19/2023 2.6 <5.0 (calc) Final NON HDL CHOLESTEROL 09/19/2023 59 <130 mg/dL (calc) Final Comment: For patients with diabetes plus 1 major ASCVD risk factor, treating to a non-HDL-C goal of <100 mg/dL (LDL-C of <70 mg/dL) is considered a therapeutic option. Assessment/Plan Diagnoses and all orders for this visit: Mixed hyperlipidemia (CMS/HCC) Longstanding persistent atrial fibrillation (CMS/HCC) - POCT Protime-INR, fingerstick docked device - dilTIAZem CD (Cardizem CD) 240 MG 24 hr capsule; Take 1 tablet by mouth daily - Coumadin 10mg a day for 3 days then resume prior dosing. Flu vaccine need - Influenza, high-dose seasonal, quadrivalent, PF ([id number]) (Fluzone High Dose [place] 0.7mL dose) Generalized edema - furosemide (Lasix) 20 MG tablet; Take 1 tablet (20 mg) by mouth Daily Benign essential hypertension (CMS/HCC) - ramipril (Altace) 10 MG capsule; Take 1 capsule (10 mg) by mouth Daily GERD without esophagitis - omeprazole (PriLOSEC) [address] capsule; Take 1 capsule (40 mg) by mouth 1 (one) time each day at the same time Lumbosacral neuritis - HYDROcodone-acetaminophen ([place]) 5-325 MG tablet; Take 2 tablets by mouth every 6 (six) hours ifneeded for severe pain Degeneration of cervical intervertebral disc - HYDROcodone-acetaminophen ([place]) 5-325 MG tablet; Take 2 tablets by mouth every 6 (six) hours ifneeded for severe pain - Medication choice and dosage is appropriate for patient's current medical conditions. Patient will continue to be required to be seen in our office at least every three months for monitoring. At each follow up visit I will reassess the patient's need for the medication. Patient is to have this medication prescribed only through this office. Failure to follow the rules and regulations will result in tapering and discontinuation of medications if applicable. Patient verbalized understanding. OARRS Report was reviewed for this patient. Follow up in about 6 weeks (around 12/26/2023) for PT/INR. [facility]* Diagnosis Longstanding persistent atrial fibrillation (CMS/HCC)- Primary Benign essential hypertension (CMS/HCC) Essential hypertension, benign Type 2 diabetes mellitus with other specified complication, with long-term current use of insulin (CMS/HCC) Mixed hyperlipidemia (CMS/HCC) Mixed hyperlipidemia Encounter for monitoring direct oral anticoagulant therapy [facility]* Diagnosis Mixed hyperlipidemia (CMS/HCC)- Primary Mixed hyperlipidemia Longstanding persistent atrial fibrillation (CMS/HCC) Flu vaccine need Generalized edema Edema Benign essential hypertension (CMS/HCC) Essential hypertension, benign GERD without esophagitis Esophageal reflux Lumbosacral neuritis Thoracic or lumbosacral neuritis or radiculitis, unspecified Degeneration of cervical intervertebral disc documented [facility] this [facility]* Diagnosis Longstanding persistent atrial fibrillation (CMS/HCC) DM (diabetes mellitus), type 2 with complications (CMS/HCC) Type II or unspecified type diabetes mellitus with unspecified complication, not stated as uncontrolled Lumbosacral neuritis Thoracic or lumbosacral neuritis or radiculitis, unspecified Degeneration of cervical intervertebral disc [facility]* Diagnosis Lumbosacral neuritis Thoracic or lumbosacral neuritis or radiculitis, unspecified Degeneration of cervical intervertebral disc documented [facility] this [facility]* Diagnosis Longstanding persistent atrial fibrillation (HCC)- Primary Type 2 diabetes mellitus with other specified complication, with long-term current use of insulin (HCC) Benign essential hypertension Essential hypertension, benign Mixed hyperlipidemia Mixed hyperlipidemia documented in this encounter [facility]* Diagnosis Longstanding persistent atrial fibrillation (HCC) Lumbosacral neuritis Thoracic or lumbosacral neuritis or radiculitis, unspecified Degeneration of cervical intervertebral disc documented in this encounter [facility] Summary Purpose Family History No Family History Records FoundNo Family History Records FoundNo Family History Records FoundNo Family History Records Found Advance Directives No Advanced Directives Records FoundNo Advanced Directives Records FoundNo Advanced Directives Records FoundNo Advanced Directives Records Found Additional Source Comments (unrecognized sect ion and content) No Status Records FoundNo Status Records FoundNo Status Records FoundNo Status Records Found INFORMATION SOURCE (unrecogn ized section and content) DATE CREATED AUTHOR 10/11/2020 [facility] DATE CREATED AUTHOR AUTHOR'S ORGANIZ ATION 08/21/2024 [facility] DATE CREATED AUTHOR AUTHOR'S ORGANIZ ATION 11/01/2024 [facility] EPIC DATE CREATED AUTHOR AUTHOR'S ORGANIZ ATION 11/01/2024 [facility] Care Teams (unrecognized sec tion and content) Team MemberRelationshipSpecialtyStart DateEnd Date Bob Ferrell MD [address] [place] [address] PCP - John LINDA02/19/21 Bob Ferrell MD [address] [place] [address] PCP - GeneralInternal Medicine08/09/22Team MemberRelationshipSpecialtyStart Date End Date Bob Ferrell MD [address] [place] [address] PCP - John LINDA02/19/21 Bob Ferrell MD [address] [place] [address] PCP - GeneralInternal Medicine08/09/22Team MemberRelationshipSpecialtyStart Date End Date Bob Ferrell MD [address] [place] [address] PCP - John LINDA02/19/21 Bob Ferrell MD [address] [place] [address] [facility]22Te MemberRelationshipSpecialtyStart Date End Date Bob Ferrell MD [address] [place] [address] PCP - John LINDA02/19/21 Bob Ferrell MD [address] [place] [address] PCP - [facility]08/09/22Te MemberRelationshipSpecialtyStart Date End Date Bob Ferrell MD [address] [place] [address] PCP - John LINDA02/19/21 Bob Ferrell MD [address] [place] [address] [facility] - [facility]22Te MemberRelationshipSpecialtyStart Date End Date Bob Ferrell MD [address] [place] [address] PCP - John LINDA02/19/21 Bob Ferrell MD [address] [place] [address] [facility] - [facility]22Te MemberRelationshipSpecialtyStart Date End Date Bob Ferrell MD [address] [place] [address] PCP - John LINDA02/19/21 Bob Ferrell MD [address] [place] [address] PCP - GeneralInternal Medicine08/09/22Team MemberRelationshipSpecialtyStart Date End Date Bob Ferrell MD [address] [place] [address] PCP - John LINDA02/19/21 Bob Ferrell MD [address] [place] [address] [facility] - [facility]22 Reason for Visit (unrecogniz ed section and content) ReasonCommentsINR VISITCoumadin 10mg M/W/F 5mg all other daysDiabetesReason CommentsINR VISITCoumadin 10mg M/W/F 5mg all other daysResultslabsDiabetesMed RefillLasix,diltalizem,ramiprilomeprazole,-- carelonHydrocodone--dm clydeReason CommentsINR VISITCoumadin 10mg M/W/F 5mg all other daysDiabetesMed Refill Hydrocodone--DM clydeReasonOnset DateCommentsMed Ocrrio9506/27/2024ReasonComments INR VISITCoumadin 10mg M/W/F 5mg all other daysMed RefillHydrocodone--DM [place] FYIPt stopped lisinopril that cardiology had started him on -- he stopped it last week due to dizziness--he is going to call them and let them know he stopped that med FOR RECORDS PERTAINING TO PATIENTS WHO ARE OR HAVE BEEN ENROLLED IN A CHEMICAL DEPENDENCY/SUBSTANCEABUSE PROGRAM, SOME INFORMATION MAY BE OMITTED. This clinical summary was aggregated from multiple sources. Caution should be exercised in using it in the provision of clinical care. This summary normalizes information from multiple sources, and as a consequence, information in this document may materially change the coding, format and clinical context of patient data. In addition, data may be omitted in some cases. CLINICAL DECISIONS SHOULD BE BASED ON THE PRIMARY CLINICAL RECORDS. [facility]. provides no warranty or guarantee of the accuracy or completeness of information in this document.
--- OUTSIDE RECORDS SUMMARY | 2025-01-03 15:19 | XMS_ITS | Encounter Summary ---
Author Organization [facility] Address [address] [facility] [place] [address] Care Team Providers Care Tie Bucker Name Role Phone Bob Ferrell MD Unavailable [phone] Bob Ferrell MD Primary Care Provider [phone] Encounter Details DateTypeDepartmentCare Team (Latest Contact Info)Uzdnntxiahb08/10/2025Travel Social History Tobacco UseTypesPacks/DayYears UsedDateSmoking Tobacco: NeverSmokeless Tobacco: NeverAlcohol UseStandard Drinks/WeekCommentsNever0 (1 standard drink = 0.6 oz pure alcohol)PHQ-2AnswerDate RecordedPatient Health Questionnaire-2 Score0 08/25/2024Housing Stability Vital SignAnswerDate RecordedIn the last 12 months, was there a time when you were not able to pay the mortgage or rent on time?No 08/15/2022In the last 12 months, how many places have you lived?In the last 12 months, was there a time when you did not have a steady place to sleep or slept in [facility] (including now)?No08/15/2022Housing Stability Vital SignAnswerDate RecordedIn the last 12 months, was there a time when you were not able to pay the mortgage or rent on time?No11/07/2023Number of Times Moved in the Last YearNot on file11/07/2023t any time in the past 12 months, were you homeless or living in a skilled nursing (including now)?No11/07/2023Humiliation, Afraid, Rape, and Kick questionnaireAnswerDate RecordedWithin the last year, have you been afraid of your partner or ex-partner?No12/29/2024Within the last year, have you been humiliated or emotionally abused in other ways by your partner or ex-partner?No12/29/2024Within the last year, have you been kicked, hit, slapped, or otherwise physically hurt by your partner or ex-partner?No12/29/2024Within the last year, have you been raped or forced to have any kind of sexual activity by your partner or ex-partner?No12/29/2024Social Connection and Isolation Panel AnswerDate RecordedIn a typical week, how many times do you talk on the phone with family, friends, or neighbors?More than three times a week12/29/2024How often do you get together with friends or relatives?More than three times a week 12/29/2024How often do you attend taoist or rastafarian services?1 to 4 times per year12/29/2024Do you belong to any clubs or organizations such as taoist groups, unions, fraternal or athletic groups, or school groups?Yes12/29/2024How often do you attend meetings of the clubs or organizations you belong to?More than 4 times per year12/29/2024re you , , , , never , or living with a partner?Zfbjoib8512/29/2024UDIT-CAnswerDate RecordedQ1: How often do you have a drink containing alcohol?Never12/29/2024Q2: How many drinks containing alcohol do you have on a typical day when you are drinking? Patient does not drink12/29/2024Q3: How often do you have six or more drinks on one occasion?Never12/29/2024Overall Financial Resource Strain (CARDIA)AnswerDate RecordedHow hard is it for you to pay for the very basics like food, housing, medical care, and heating?Not hard at all12/29/2024[facility] [place] of Occupational Health - Occupational Stress QuestionnaireAnswerDate RecordedDo you feel stress - tense, restless, nervous, or anxious, or unable to sleep at night because yourmind is troubled all the time - these days?Not at all12/29/2024 Exercise Vital SignAnswerDate RecordedOn average, how many days per week do you engage in moderate to strenuous exercise (like a brisk walk)?0 days12/29/2024On average, how many minutes do you engage in exercise at this level?0 min 12/29/2024Hunger Vital SignAnswerDate RecordedWithin the past 12 months, you worried that your food would run out before you got the money to buymore.Never true12/29/2024Within the past 12 months, the food you bought just didn't last and you didn't have money to get more.Never true12/29/2024PRAPARE - TransportationAnswerDate RecordedIn the past 12 months, has lack of transportation kept you from medical appointments or from getting medications?No 12/29/2024In the past 12 months, has lack of transportation kept you from meetings, work, or from getting things needed for daily living?No12/29/2024 Housing Stability Vital SignAnswerDate RecordedIn the last 12 months, was there a time when you were not able to pay the mortgage or rent on time?No12/29/2024In the past 12 months, how many times have you moved where you were living?0 12/29/2024t any time in the past 12 months, were you homeless or living in a skilled nursing (including now)?No12/29/2024B1300 Health LiteracyAnswerDate RecordedHow often do you need to have someone help you when you read instructions, pamphlets, or other written material from your doctor or pharmacy?Never 12/29/2024Sex and Gender InformationValueDate RecordedSex Assigned at BirthMale 08/15/2022 6:01 PM EDTLegal KhePwoz7805/03/2022 7:17 PM EDTGender IdentityNot on fileSexual OrientationNot on filedocumented as of this encounter Functional Status * AUDIT-C ScoreAnswerDate of KthnnrzctvNhqqgl539/10/2025 8:15 AM Mara Montalvo * Q1: How often do you have a drink containing alcohol?AnswerDate of Assessment RpqecyBcwif80/10/2025 8:15 AM ESTMychart, Generic * Q2: How many drinks containing alcohol do you have on a typical day when you are drinking?AnswerDate of AssessmentAuthorPatient does not drink12/29/2024 8:15 AM ESTMychart, Generic * Q3: How often do you have six or more drinks on one occasion?AnswerDate of VcxxlszvgpPfggypTmbkv96/10/2025 8:15 AM ESTNaz, Generic documented as of this encounter Plan of Treatment Not on file documented as of this encounter Visit Diagnoses Not on filedocumented in this encounter Care Teams Team MemberRelationshipSpecialtyStart DateEnd Date Bob Ferrell MD [address] [facility] [address] [place] [address] PCP - John LINDA02/19/21 Bob Ferrell MD [address] [place] [address] PCP - GeneralInternal Medicine08/09/22documented as of this encounter
--- OUTSIDE RECORDS SUMMARY | 2025-01-03 15:19 | XMS_ITS | Clinical Summary ---
Author Organization [facility] Address [address] [place] [address], [address] [place] [address] Care Team Providers Care Electrocardiograph Operator Name Role Phone Unavailable Primary Care Provider Unavailabl e Social History Tobacco UseTypesPacks/DayYears UsedDateSmoking Tobacco: Never AssessedSex and Gender InformationValueDate RecordedSex Assigned at BirthNot on fileLegal Sex Male03/31/2012 12:05 PM ESTGender IdentityNot on fileSexual OrientationNot on file Plan of Treatment Not on file
--- OUTSIDE RECORDS SUMMARY | 2025-01-03 15:20 | XMS_ITS | Clinical Summary ---
Author Organization [facility] Healthcare Address [address] [facility] [place] [address] Care Team Providers Care Associate Director Of Nursing Name Role Phone Bob Ferrell MD Unavailable [phone] Bob Ferrell MD Primary Care Provider [phone] Allergies No known active allergies Medications MedicationSigDispense QuantityRefillsLast FilledStart DateEnd DateStatus Turmeric 500 MG tablet 1 (one) time each day at the same time.Active Multiple Vitamins-Minerals (Multi For Him 50+) tablet 1 (one) time each day at the same time.Active omega-3 (fish oil) 1000 MG capsule 1 capsule 1 (one) time each day at the same time.Active carvedilol (Coreg) 12.5 MG tablet Indications:Longstanding persistent atrial fibrillation (HCC),Benign essential hypertensionTAKE 1 TABLET BY MOUTH IN THE MORNING AND 1 TABLET IN THE EVENING WITH MEALS. 200 tablet 5Active cyclobenzaprine (Flexeril) 10 MG tablet Indications:Degeneration of cervical intervertebral discTake 1 tablet (10 mg) by mouth 3 (three) times a day as needed for muscle spasms Take one capsule up to three times daily for 90 days 300 tablet 5Active atorvastatin (Lipitor) 20 MG tablet Indications:Mixed hyperlipidemiaTAKE ONE TABLET BY MOUTH ONCE DAILY 100 tablet 5Active omeprazole (PriLOSEC) [address] capsule Indications:GERD without esophagitisTAKE ONE CAPSULE BY MOUTH EVERY DAY AT THE SAME TIME 100 capsule 5Active furosemide (Lasix) 20 MG tablet Indications:Generalized edemaTAKE ONE TABLET BY MOUTH EVERY DAY 90 tablet 307/08/2025Active digoxin (Lanoxin) 125 MCG tablet Indications:Atrial fibrillation, unspecified type (HCC),Benign essential hypertensionTAKE ONE TABLET BY MOUTH EVERY DAY 100 tablet 5Active warfarin (Coumadin) 5 MG tablet Indications:Longstanding persistent atrial fibrillation (HCC)TAKE 2 TABLETS BY MOUTH 3 TIMES A WEEK AND 1 TABLET 4 TIMES A WEEK 143 tablet 5Active HYDROcodone-acetaminophen (Shonto) 5-325 MG tablet Indications:Lumbosacral neuritis,Degeneration of cervical intervertebral disc Take 2 tablets by mouth every 6 (six) hours if needed for severe pain 120 tablet 5Active dilTIAZem CD (Cardizem CD) 240 MG 24 hr capsule Indications:Longstanding persistent atrial fibrillation (HCC)TAKE ONE CAPSULE BY MOUTH EVERY DAY 90 capsule 5Active Active Problems ProblemNoted DateDiagnosed DateEncounter for monitoring direct oral anticoagulant qzbnlfl0512/28/2023trial wzovunfsahpy82/24/2023enign essential xhhixfrgmsnd71/24/2023egeneration of cervical intervertebral disc07/12/2022 Edema07/12/2022ERD without zfuzdnmqrvs08/24/2023Lumbosacral yxcsshdy79/24/2023 Mixed nzducwqunlhjfs78/24/2023Morbid ykhdwdf6707/12/2022OSA (obstructive sleep apnea)07/12/2022rimary generalized hypertrophic lgaudibhqkkbhj52/24/2023Type 2 diabetes mellitus, with long-term current use of bemzrcx9907/12/2022 Encounters DateTypeDepartmentCare FtvtKrsezqaybze78/10/5142Lgbxam68/04/2025Refill [address] [place] [phone] Bob Ferrell MD Longstanding persistent atrial fibrillation (HCC)10/30/2024 11:30 AM EDTOffice Visit [address] [place] [phone] Bob Ferrell MD Longstanding persistent atrial fibrillation (HCC); Lumbosacral neuritis; Degeneration of cervical intervertebral disc10/30/2024amboo flowsheet [address] [place] [address] Bob Ferrell MD 10/30/20249813Snsqdt10/06/2025Refill N[facility]S [place] [address] [place] [address] Bob Ferrell MD Longstanding persistent atrial fibrillation (HCC)10/23/2024Travelfrom Last 3 Months Immunizations ImmunizationAdministration DatesNext DueInfluenza, High Dose Seasonal, Preservative Free01/11/2022,12/13/2020Influenza, High-dose Seasonal, Quadrivalent, Preservative Free11/14/2023,12/25/2022,01/08/2020,12/10/2017 Influenza, Injectable, MDCK, preservative free01/07/2019Influenza, Split (incl. purified surface antigen)11/24/2013Influenza, injectable, quadrivalent, preservative free11/15/2015,11/11/2014Influenza, seasonal, injectable, preservative free11/15/2016Influenza, seasonal, intradermal, preservative free 01/03/2013Pneumococcal Polysaccharide RAQX5837/02/20095733Imry98/27/2019,02/19/2007 Zoster, live12/20/2012 Family History Medical HistoryRelationNameCommentsHeart diseaseBrotherDonald HorneHeart disease FatherCharles Knight Sr.Lung cancerMotherArthritisPaternal GrandmotherRouie Knight RelationNameStatusCommentsBrotherDonald HorneFatherCharles Knight Sr. MotherDeceasedPaternal GrandmotherRouie Knight Social History Tobacco UseTypesPacks/DayYears UsedDateSmoking Tobacco: NeverSmokeless Tobacco: Never Tobacco Cessation:Counseling Given: Not Answered Alcohol UseStandard Drinks/WeekCommentsNever0 (1 standard drink = 0.6 oz pure alcohol)PHQ-2AnswerDate RecordedPatient Health Questionnaire-2 Wsgjt402 Housing Stability Vital SignAnswerDate RecordedIn the last 12 months, was there a time when you were not able to pay the mortgage or rent on time?No08/15/2022In the last 12 months, how many places have you lived?In the last 12 months, was there a time when you did not have a steady place to sleep or slept in ashelter (including now)?No08/15/2022Housing Stability Vital SignAnswerDate RecordedIn the last 12 months, was there a time when you were not able to pay the mortgage or rent on time?11/07/2023Number of Times Moved in the Last Year Not on file11/07/2023t any time in the past 12 months, were you homeless or living in a nursing home (including now)?11/07/2023Humiliation, Afraid, Rape, and Kick questionnaireAnswerDate RecordedWithin the last year, have you been afraid of your partner or ex-partner?No12/29/2024Within the last year, have you been humiliated or emotionally abused in other ways by your partner or ex-partner?No 12/29/2024Within the last year, have you been kicked, hit, slapped, or otherwise physically hurt by your partner or ex-partner?No12/29/2024Within the last year, have you been raped or forced to have any kind of sexual activity by your part ner or ex-partner?No12/29/2024Social Connection and Isolation PanelAnswerDate RecordedIn a typical week, how many times do you talk on the phone with family, friends, or neighbors?More than three times a week12/29/2024How often do you get together with friends or relatives?More than three times a week12/29/2024How often do you attend hinduism or restorationist services?1 to 4 times per year12/29/2024 Do you belong to any clubs or organizations such as hinduism groups, unions, fraternal or athletic groups, or school groups?Yes12/29/2024How often do you attend meetings of the clubs or organizations you belong to?More than 4 times per year12/29/2024re you , , , , never , or living with a partner?Bbbgodw7212/29/2024UDIT-CAnswerDate RecordedQ1: How often do you have a drink containing alcohol?Never12/29/2024Q2: How many drinks containing alcohol do you have on a typical day when you are drinking?Patient does not drink12/29/2024Q3: How often do you have six or more drinks on one occasion?Never12/29/2024Overall Financial Resource Strain (CARDIA)AnswerDate RecordedHow hard is it for you to pay for the very basics like food, housing, medical care, and heating?Not hard at all12/29/2024[facility]americ[facility] Occupational Health - Occupational Stress QuestionnaireAnswerDate [...] were you homeless or living in a nursing home (including now)?No12/29/2024B1300 Health LiteracyAnswerDate RecordedHow often do you need to have someone help you when you read instructions, pamphlets, or other written material from your doctor or pharmacy?Never 12/29/2024Sex and Gender InformationValueDate RecordedSex Assigned at BirthMale 08/15/2022 6:01 PM EDTLegal HpmUfaa2405/03/2022 7:17 PM EDTGender IdentityNot on fileSexual OrientationNot on file Last Filed Vital Signs Vital SignReadingTime TakenCommentsBlood Kylfqeuu772/7410/30/2024 11:15 AM EDT Srxgr489510/30/2024 11:15 AM EDTTemperature--Respiratory Uipe482406/25/2024 9:24 AM EDTOxygen Gegunfiyhi37%10/30/2024 11:15 AM EDTInhaled Oxygen Concentration-- Ljbeie481 kg (379 lb)10/30/2024 11:15 AM INUUokyei186.8 cm (5' 10 )10/30/2024 11:15 AM EDTBody Mass Index54.3809 11:15 AM EDT Plan of Treatment Health MaintenanceDue DateLast DoneCommentsCT Hndfqppcxrjg13/05/1951FIT 1952FOBT1952 4332Wrjhhydaudlfy43/05/1953neumococcal Vaccine: 65+ Years (2 of 2 - PCV)Colonoscopy, 12/15/2013 Diabetes: Retinopathy Ccgwamyxt36/04/2022, 09/30/2020, 09/29/2019, Additional history existsCOVID-19 Vaccine ( season)2024 02/02/2021, 05/22/2020, 04/30/2020Influenza Vaccine (#1)/, 12/25/2022, 01/11/2022, Additional history existsDiabetes: Hemoglobin A1C /08/2024, 06/25/2024, 02/28/2024, Additional history existsMedicare Annual Wellness (AWV)2025, 4Diabetes: Urine Protein Qnlaijxkt57/, 04/30/2023, 07/10/2019, Additional history exists Colorectal Cancer Wpmrnwtfl38/05/2027FIT-DNA Procedures Procedure NamePriorityDate/TimeAssociated DiagnosisCommentsPOCT PROTIME-INR, GMGPXLYKCFICgimtco91/11/2025 11:28 AM EDT Longstanding persistent atrial fibrillation (HCC) POCT GLYCATED HEMOGLOBIN, PGKNGKzrdxnx36/07/2025 10:42 AM EDT Type 2 diabetes mellitus with other specified complication, with long-term current use of insulin (HCC) MICROALBUMIN / CREATININE URINE PEVEVMdcmmfv44/30/2025 9:34 AM EDT DM (diabetes mellitus), type 2 with complications (HCC) Medicare annual wellness visit, subsequent LAB COLOGUARD?? COLON CANCER TAUZMZDsaywri23/05/2024 3:12 PM EST Encounter for screening for malignant neoplasm of colon DIABETIC RETINOPATHY SCREENING - OU - BOTH LPNDRgvnhug19/03/2023 XTOAWRUVTJPTusgyxn39/27/2014 12:00 PM EDT from Last 3 Months or Most Recently Relevant to Health Maintenance Results * POCT Protime-INR, fingerstick docked device (10/30/2024 11:28 AM EDT)Component ValueRef RangeTest MethodAnalysis TimePerformed AtPathologist SignatureRESULTS 2.7Specimen (Source)Anatomical Location / LateralityCollection Method / Volume Collection TimeReceived TimeBloodVenous blood specimen / Shxirpk0010/30/2024 11:28 AM EDT Narrative Authorizing ProviderResult TypeResult StatusDaniel B Ghassan [facility]INT [facility] CARE TEST ENTER/EDIT ORDERABLESFinal Result * POCT Glycated hemoglobin, total (08/25/2024 10:42 AM EDT)ComponentValueRef RangeTest MethodAnalysis TimePerformed AtPathologist SignatureHemoglobin A1C 7.9Specimen (Source)Anatomical Location / LateralityCollection Method / Volume Collection TimeReceived MvczBepry62/07/2025 10:42 AM EDT Narrative Authorizing ProviderResult TypeResult StatusBob Ferrell MDPOINT OF CARE TEST ENTER/EDIT ORDERABLESFinal Result * (ABNORMAL) Microalbumin / creatinine urine ratio (08/18/2024 9:34 AM EDT) ComponentValueRef RangeTest MethodAnalysis TimePerformed AtPathologist SignatureCREATININE, RANDOM ECDSO67233 - 320 mg/dLQUESTALBUMIN, URINE71.1See Note: mg/dLQUESTComment: Reference Range: Reference Range Not established Results verified by repeat analysis on dilution. ALBUMIN/CREATININE RATIO, RANDOM QSGTS261(H)<30 mg/g creatQUESTComment: The ADA defines abnormalities in albumin excretion as follows: Albuminuria Category ?Result (mg/g creatinine) Normal to Mildly increased <30 Moderately increased ? 30-299 Severely increased > OR = 300 The ADA recommends that at least two of three specimens collected within a 3-6 month period be abnormal before considering a patient to be within a diagnostic category. Specimen (Source)Anatomical Location / LateralityCollection Method / Volume Collection TimeReceived TimeUrineUrine specimen obtained by clean catch procedure / Aaadonc7408/18/2024 9:34 AM EDT08/18/2024 9:34 AM EDT Narrative [facility] - 08/19/2024 2:36 PM EDT FASTING:YES FASTING: YES Resulting Agency Comment Performing Organization Information ?Site ID: [id number] ?Name: [facility] ?Address: [address] [place] [address], [address] [place] [id number] ?Director: Renzo Milton MD Authorizing ProviderResult TypeResult StatusBob Ferrell MDKINGMAN COMMUNITY [facility] URINE ORDERABLESFinal ResultPerforming OrganizationAddressCity/State/ZIP CodePhone Number [facility] * Cologuard?? colon cancer screening (03/26/2023 3:12 PM EST)ComponentValueRef RangeTest MethodAnalysis TimePerformed AtPathologist SignatureNONINV COLON CA DNA+OCC BLD SCRN STL-BRPIxhikmbeSsihcolp09/17/2024 10:13 AM [facility] (CLIA #:[id number])Comment: NEGATIVE TEST RESULT. A negative Cologuard result indicates a low likelihood that a colorectal cancer (CRC) or advanced adenoma (adenomatous polyps with more advanced pre-malignant features) ??is present. The chance that a person with a negative Cologuard test has a colorectal cancer is less than 1in 1500 (negative predictive value >99.9%) or has an advanced adenoma is less than 5.3% (negative predictive value 94.7%). These data are based on a prospective cross-sectional study of 10,000individuals at average risk for colorectal cancer who were screened with both Cologuard and colonoscopy. (Samantha Dial. et al, N Engl J Med 2014;370(14):4721-1519) The normal value (reference range) for this assay is negative. COLOGUARD RE-SCREENING RECOMMENDATION: Periodic colorectal cancer screening is an important part ofpreventive healthcare for asymptomatic individuals at average risk for colorectal cancer. ??Following a negative Cologuard result, the [place] Cancer Society and U.S. Multi-Society Task Force screening guidelines recommend a Cologuard re-screening interval of 3 years. References: [place] [employer] Society Guideline for Colorectal Cancer Screening: https://www.cancer.or g/cancer/rcxkq-jssgdl-ywifyi/ohatmgyfw-qbeptstqd-xicarlz/acs-recommendations.htm vani; Max MANLEY, Ericka MONTALVO, Shelli HarrellK, Colorectal Cancer Screening: Recommendations for Physicians and Patients from the U.S. Multi-Society Task Force on Colorectal Cancer Screening , Am J Gastroenterology 2017; 112:7198-2911. TEST DESCRIPTION: Composite algorithmic analysis of stool DNA-biomarkers with hemoglobin immunoassay. ?? Quantitative values of individual biomarkers are not reportable and are not associated with individual biomarker result reference ranges. Cologuard is intended for colorectal cancer screening ofadults of either sex, 45 years or older, who are at average-risk for colorectal cancer (CRC). Cologuard has been approved for use by the U.S. FDA. The performance of Cologuard was established in a cross sectional study of average-risk adults aged 50-84. Cologuard performance in patients ages 45 to 49 years was estimated by sub-group analysis of near-age groups. Colonoscopies performed for a positive result may find as the most clinically significant lesion: colorectal cancer [4.0%], advanced adenoma (including sessile serrated polyps greater than or equal to 1cm diameter) [20%] or non- advanced adenoma [31%]; or no colorectal neoplasia [45%]. These estimates are derived from a prospective cross-sectional screening study of 10,000 individuals at average risk for colorectal cancer who were screened with both Cologuard and colonoscopy. (Samantha Ahumada al, N Engl J Med 2014;370(14):8628-8643.) Cologuard may produce a false negative or false positive result (no colorectal cancer or precancerous polyp present at colonoscopy follow up). A negative Cologuard test result does not guarantee the absence of CRC or advanced adenoma (pre-cancer). The current Cologuard screening interval is every 3 years. ([place] [employer] Society and U.S. Multi-Society Task Force). Cologuard performance data in a 10,000 patient pivotal study using colonoscopy as the reference method can be accessed at the following location: www.[employer]/results. Additional description of the Cologuard test process, warnings and precautions can be found at www.cologuard.com. Specimen (Source)Anatomical Location / LateralityCollection Method / Volume Collection TimeReceived TimeStool specimen (specimen)03/26/2023 3:12 PM EST 03/28/2023 9:31 AM EST Narrative Authorizing ProviderResult TypeResult StatusDanipinky [facility] ORDERABLESFinal ResultPerforming OrganizationAddressCity/State/ZIP CodePhone Number .[employer] (CLIA #:[id number]) [address] [address], [employer] (CLIA #:[id number]) [address] [address] * Diabetic Retinopathy Screening - OU - Both Eyes (09/21/2022)ComponentValueRef RangeTest MethodAnalysis TimePerformed AtPathologist SignatureRESULTSndr Anatomical RegionLateralityModalityHeadOtherSpecimen (Source)Anatomical Location / LateralityCollection Method / VolumeCollection TimeReceived Time 09/21/2022 Narrative Authorizing ProviderResult TypeResult StatusDatomeka Ferrell MDOPHTH PHOTOGRAPHY Final Result * Colonoscopy (12/15/2013 12:00 PM EDT)Anatomical RegionLateralityModality EndoscopySpecimen (Source)Anatomical Location / LateralityCollection Method / VolumeCollection TimeReceived Time12/15/2013 12:00 PM EDT Narrative 12/15/2013 12:00 PM EDT PERFORMED AT [facility] LOCATION:[id number] polyp- Tubular adenoma Procedure Note CONVERSION, GENERIC - 07/06/2022 PERFORMED AT [facility] LOCATION:[id number] polyp- Tubular adenoma Authorizing ProviderResult TypeResult StatusDatomeka Ferrell MDENDOSCOPY PROCEDURE ORDERABLESFinal Result from Last 3 Months or Most Recently Relevant to Health Maintenance Insurance Care Teams Team MemberRelationshipSpecialtyStart DateEnd Bob Ferrell MD [address] [facility] [address] [place] [address] PCP - John LINDA02/19/21 Bob Ferrell MD [address] [place] [address] [place] [address] PCP - GeneralInternal Medicine08/09/22
--- OUTSIDE RECORDS SUMMARY | 2025-01-03 15:20 | XMS_ITS | Clinical Summary ---
Author Organization [employer] tem Address [id number] [address] [place] [address] Care Team Providers Care Senior Java Web Developer Name Role Phone Bob Ferrell MD Primary Care Provider [phone] Allergies No known active allergies Medications MedicationSigDispense QuantityRefillsLast FilledStart DateEnd DateStatus warfarin (COUMADIN) 5 mg tablet Take 5 mg by mouth daily.Active ramipriL (ALTACE) 10 mg capsule Take 10 mg by mouth daily.Active furosemide (LASIX) 20 mg tablet Take 10 mg by mouth daily.Active digoxin (LANOXIN) 125 mcg tablet Take 125 mcg by mouth daily.Active HYDROcodone-acetaminophen (NORCO) 5-325 mg per tablet Take 1 tablet by mouth daily.Active cyclobenzaprine (FLEXERIL) 10 mg tablet Take 10 mg by mouth 3 (three) times a day as needed for muscle spasms.Active aspirin 325 mg tablet Take 325 mg by mouth daily.Active omega 8-oxv-okq-fish oil (FISH OIL) 300-1,000 mg capsule Take 1,000 mg by mouth daily.Active atorvastatin (LIPITOR) 10 mg tablet Take 10 mg by mouth daily.Active Social History Tobacco UseTypesPacks/DayYears UsedDateSmoking Tobacco: NeverSmokeless Tobacco: NeverAlcohol UseStandard Drinks/WeekCommentsNever0 (1 standard drink = 0.6 oz pure alcohol)AUDIT-CAnswerDate RecordedQ1: How often do you have a drink containing alcohol?Never12/21/2019Average Number of DrinksNot on file12/21/2019 Frequency of Binge DrinkingNot on file12/21/2019ChildcareAnswerDate Recorded CvbjqfxwhVsofmlz90/01/2020EmploymentAnswerDate RecordedEmploymentUnknown 12/21/2019Purpose - LifeAnswerDate RecordedPurpose and direction in lifeUnknown 04/01/2020ex and Gender InformationValueDate RecordedSex Assigned at BirthNot on fileLegal LktJvtj6909/24/2014 11:23 AM EDTGender IdentityNot on fileSexual OrientationNot on file Last Filed Vital Signs Vital SignReadingTime TakenCommentsBlood Bazymzxd770/7212/21/2019 7:53 PM EST Erkmu122312/21/2019 7:53 PM CZRGrsxplohinc31.8 ??C (98.2 ??F)12/21/2019 6:26 PM ESTRespiratory Augk7361 7:53 PM ESTOxygen Rwbzbkindr13%12/21/2019 6:59 PM ESTInhaled Oxygen Concentration--Vdfrlh014.1 kg (289 lb)12/21/2019 6:26 PM BOPHhqvyt080.8 cm (5' 10 )12/21/2019 6:26 PM ESTBody Mass Index41.4712/21/2019 6:26 PM EST Plan of Treatment Health MaintenanceDue DateLast DoneCommentsDepression Zrahzrjnn47/05/1965Tobacco Jsxitxmtw23/05/1965Adult BMI Rdeqsvdig85/05/1971DTaP,Tdap and Td Vaccines (1 - Tdap)09/24/1971Zoster (Shingles) Vaccine (1 of 2)2002Fall Risk Screening 2017Influenza Dhjjlvv7410/20/2024RSV ( or age 60+ yrs) (1 - 1-dose 75+ series)09/24/2027 Medical Devices Not on file Insurance Care Teams Team MemberRelationshipSpecialtyStart DateEnd Date Bob Ferrell MD [address] [facility] [address] [place] [id number] PCP - GeneralInternal Szkfzpdn59/1/20
[2025-01-03 15:24] VITALS: BP 130/98; PULSE 71; O2SAT 95
--- NOTE | 2025-01-03 22:46 | ED.GENADUL1 ---
HPI HPI - General Adult General Chief complaint: Head Injury Stated complaint: FALL Time Seen by Provider: 01/03/25 14:18 Source: patient Mode of arrival: ambulance Limitations: no limitations History of Present Illness HPI narrative: Patient is a 74-year-old male who is presenting to the ER after a fall. Patient had a misstep going up the top of 5 steps and fell backwards. Patient landed on the grass, hit his head against the grass. He did not hit concrete or hard object. Patient is on blood thinners. Patient has mild pain to right middle and index finger with minimal ecchymosis. Patient has mild tenderness to right anterior sifuentes. Patient is morbidly obese. Patient has no other acute complaints. Patient is coming in by EMS. Patient's son is at bedside. Patient has no headache, neck pain. No chest pain or shortness of breath. No abdominal pain nausea or vomiting. Patient has no acute complaints. Patient agreed to come to be evaluated by family because he hit his head and is on blood thinners. No loss of consciousness. Patient fell backwards approximately 4 steps and landed on the grass. Patient states he is very thankful that he did not land on concrete. Unless otherwise stated in this report or unable to obtain because of the patient's clinical or mental status as evidenced by medical record, the patient's positive and negative responses for review of systems for constitutional, eyes, ENT, cardiovascular, respiratory, gastrointestinal, neurological, , musculoskeletal, and integument systems and related systems to the presenting problem are either stated in the history of present illness or were not pertinent or were negative for the symptoms and/or complaints related to the presenting medical problem. Nurses note and vital signs reviewed and patient is not hypoxic. General: The patient appears well and in no apparent distress. Patient is resting comfortably on cart. Patient is not toxic, lethargic, or listless Skin: Warm, dry, no pallor noted. There is no rash noted. No petechiae, purpura. Head: Normocephalic, atraumatic; no scalp hematoma. No tenderness to palpation to midline or paracervical soft tissue. Full range of motion of cervical spine with no difficulty or pain. Eye: Normal conjunctiva, no drainage, EOMI. PERRL Ears, Nose, Mouth, and Throat: oral mucosa is moist. Nares patent. Mouth without vesicles. Cardiovascular: Regular Rate and Rhythm, no murmur, gallop, rub Respiratory: Patient is in no distress, no accessory muscle use, lungs are clear to auscultation, no wheezing, rales or rhonchi Back: non-tender, no CVA tenderness bilaterally to percussion. No CT LS midline pain GI: Morbidly obese, no tenderness to palpation, no masses appreciated. No rebound, guarding, or rigidity noted. No distention Musculoskeletal: Patient has full range of motion of all of the extremities, no motor, sensory, or focal neurological deficits. Patient has full range of motion with minimal if any pain to the right middle and ring finger. No obvious deformity or difficulty with range of motion. Patient does not want an x-ray to right hand. Patient has full range of motion of bilateral lower extremities with no difficulty, no severe pain to right lower extremity at all, patient does not want an x-ray. Neurological: A&O x4, normal speech Psychiatric: Cooperative Related Data Home Medications ?Medication ?Instructions ?Recorded ?Confirmed TUMERIC 1 tab PO DAILY 01/03/25 01/03/25 atorvastatin 20 mg tablet 20 mg PO DAILY 01/03/25 01/03/25 cyclobenzaprine 10 mg tablet 10 mg PO Q8H 01/03/25 01/03/25 digoxin 125 mcg (0.125 mg) tablet 0.125 mg PO DAILY 01/03/25 01/03/25 diltiazem HCl 240 mg 240 mg PO Q24H 01/03/25 01/03/25 capsule,extended release 24 hr furosemide 20 mg tablet 20 mg PO DAILY 01/03/25 01/03/25 hydrocodone 5 mg-acetaminophen 325 2 tab PO Q6H PRN pain 01/03/25 01/03/25 mg tablet omega 2-exx-vfg-fish oil 1,000 mg 1 cap PO DAILY 01/03/25 01/03/25 (120 mg-180 mg) capsule (Fish Oil) omeprazole 40 mg capsule,delayed 40 mg PO DAILY 01/03/25 01/03/25 release warfarin 5 mg tablet 5 mg PO DAILY 01/03/25 01/03/25 Allergies Allergy/AdvReac Type Severity Reaction Status Date / Time No Known Drug Allergies Allergy Verified 01/03/25 14:26 Opioid HPI Opioid Management Most Recent Opioid Data: Last Pain Scale 5 Today, 14:42 PFSH PFSH Social History Little interest or pleasure in doing things: not at all Feeling down, depressed, or hopeless: not at all Exam Constitutional Vital Signs, click to edit/add: Last Vital Signs Temp 98.2 F 01/03/25 14:20 Pulse 71 01/03/25 15:24 Resp 18 01/03/25 15:24 BP 130/98 H 01/03/25 15:24 Pulse Ox 95 01/03/25 15:24 O2 Del Method Room Air 01/03/25 15:24 Course Vital Signs Vital signs: Vital Signs Temperature 98.2 F 01/03/25 14:20 Pulse Rate 70 01/03/25 14:20 Respiratory Rate 18 01/03/25 14:20 Blood Pressure 153/85 H 01/03/25 14:20 Pulse Oximetry 95 01/03/25 14:20 Oxygen Delivery Method Room Air 01/03/25 14:20 Temperature 98.2 F 01/03/25 14:20 Pulse Rate 71 01/03/25 15:24 Respiratory Rate 18 01/03/25 15:24 Blood Pressure 130/98 H 01/03/25 15:24 Pulse Oximetry 95 01/03/25 15:24 Oxygen Delivery Method Room Air 01/03/25 15:24 Medical Decision Making MDM Narrative Medical decision making narrative: Patient agreed to CT of the head and cervical spine that were negative. Patient had minimal if any pain in the right hand and right sifuentes, he did not want x-rays. Patient does not want any additional testing done. We have talked at length with patient and son at bedside about the difficulty of picking up his right foot to get above the fifth step into the house and not having weakness in his right leg due to a stroke. Patient's been having mobility issues for months to years. Son states they are working on helping improve the steps and getting ramps at the home. Patient does not think he had a stroke. Patient wants no stroke testing, son agrees. No questions at discharge. Education and close head injury, contusions were discussed. Discharge Plan Discharge Chief Complaint: Head Injury Clinical Impression: Closed head injury Patient Disposition: Home, Self-Care Condition: Fair Mode of Transportation: Private Vehicle Prescriptions / Home Meds: No Action cyclobenzaprine 10 mg tablet 10 mg PO Q8H atorvastatin 20 mg tablet 20 mg PO DAILY hydrocodone-acetaminophen 5-325 mg tablet 2 tab PO Q6H PRN (Reason: pain) diltiazem HCl 240 mg capsule,extended release 24hr 240 mg PO Q24H omeprazole 40 mg capsule,delayed release(DR/EC) 40 mg PO DAILY warfarin 5 mg tablet 5 mg PO DAILY digoxin 125 mcg (0.125 mg) tablet 0.125 mg PO DAILY furosemide 20 mg tablet 20 mg PO DAILY omega [id number]-[id number]-fish oil [Fish Oil] 1,000 (120-180) mg capsule 1 cap PO DAILY TUMERIC 1 tab PO DAILY Print Language: Cypriot Instructions: Head Injury (ED) Additional Instructions: Close head injury instructions were discussed at bedside and on discharge paper. Follow-up with PCP Referrals: ISABELA DICKSON [Primary Care Provider, Internal Medicine] - 1 week Discharge Date/Time: 01/03/25 15:27
== END 2025-01-03 15:27 | disposition home or self-care (01) ==
PROVIDERS: Emergency Provider Emergency Medicine; PCP Internal Medicine
DX: S09.8XXA Other specified injuries of head, initial encounter (principal); W10.8XXA Fall (on) (from) other stairs and steps, initial encounter; E66.01 Morbid (severe) obesity due to excess calories; Z68.43 Body mass index [BMI] 50.0-59.9, adult
CPT/HCPCS: 70450; 72125; 76376; 99284